=== PATIENT | female | born 1970 | race Caucasian/White ===

== ENCOUNTER 2017-09-15 08:09 | Day surgery (SDC) | payer OTHER ==
[~2017-09-15 08:09] MED LIST: Lactated Ringers 1,000 ML IV SCH; Lidocaine 2% 5 ML SDV ONE; Propofol 200 MG/20 ML SDV ONE; fentaNYL 100 MCG/2 ML SDV ONE
--- NOTE | 2017-09-15 09:19 | PCM.PREANE ---
Preanesthetic Assessment - Anesthesia/Transfusion/Family Hx Anesthesia History: Prior Anesthesia Reaction Type of Anesthesia Reaction: Excessive Nausea/Vomiting Family History of Anesthesia Reaction: No Transfusion History: No Prior Transfusion(s) Intubation History: Unknown - Review of Systems General: No Symptoms Pulmonary: No Symptoms Cardiovascular: No Symptoms Gastrointestinal: No Symptoms Neurological: No Symptoms Other: Reports: None - Physical Assessment NPO Status Date: 09/14/17 O2 Sat by Pulse Oximetry: 97 Respiratory Rate: 16 Vital Signs: Last Vital Signs Temp 36.0 C 09/15/17 08:39 Pulse 89 09/15/17 08:39 Resp 16 09/15/17 08:39 BP 107/82 09/15/17 08:39 Pulse Ox 97 09/15/17 08:39 Weight: 76.204 kg ASA Class: 2 Mental Status: Alert & Oriented x3 Airway Class: Mallampati = 2 Dentition: Reports: Normal Dentition ROM/Head Extension: Full Lungs: Clear to Auscultation, Normal Respiratory Effort Cardiovascular: Regular Rate, Regular Rhythm - Allergies Allergies/Adverse Reactions: Allergies Allergy/AdvReac Type Severity Reaction Status Date / Time Penicillins Allergy Mild Rash Verified 09/15/17 08:24 tramadol Allergy Cannot Verified 09/15/17 08:24 Remember - Anesthesia Plan Pre-Op Medication Ordered: None - Acknowledgements Anesthesia Type Planned: MAC Pt an Appropriate Candidate for the Planned Anesthesia: Yes Alternatives and Risks of Anesthesia Discussed w Pt/Guardian: Yes Pt/Guardian Understands and Agrees with Anesthesia Plan: Yes PreAnesthesia Questionnaire HEENT History: Reports: Allergic Rhinitis, Impaired Vision, Other (See Below) Other HEENT History: wears glasses Cardiovascular History: Reports: High Cholesterol, Hypertension Respiratory History: Reports: COPD Gastrointestinal History: Reports: GERD Genitourinary History: Reports: None 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: Musculoskeletal History: Reports: Fracture, Osteoporosis Other Musculoskeletal History: fx foot, ribs, Neurological History: Reports: Other (See Below) Other Neuro History: "memory issues" Psychiatric History: Reports: Anxiety, Depression, Other (See Below) Other Psychiatric History: insomnia Endocrine/Metabolic History: Reports: Hypothyroidism Hematologic History: Reports: None Immunologic History: Reports: None Oncologic (Cancer) History: Reports: None Dermatologic History: Reports: None - Past Surgical History Head Surgeries/Procedures: Reports: None GI Surgical History: Reports: EGD Female Surgical History: Reports: Other (See Below) Other Female Surgeries/Procedures: Right breast ductectomy Endocrine Surgical History: Reports: Thyroidectomy, Other (See Below) Other Endocrine Surgeries/Procedures: L thyroid lobectomy Neurological Surgical History: Reports: Lumbar Spine Other Neurological Surgeries/Procedures: lower back surgery Other Musculoskeletal Surgeries/Procedures:: L4-l5 discectomy, laminectomy Oncologic Surgical History: Reports: Biopsy of Breast - SUBSTANCE USE Smoking Status *Q: Current Every Day Smoker Tobacco Use Within Last Twelve Months: Cigarettes Second Hand Smoke Exposure: Yes Days Per Week of Alcohol Use: 1 Number of Drinks Per Day: 0 Total Drinks Per Week: 0 Recreational Drug Use History: No - HOME MEDS Home Medications: Home Meds Atenolol [Tenormin] 50 mg PO DAILY 01/07/14 [History] Hydrochlorothiazide 25 mg PO DAILY 01/07/14 [History] Levothyroxine Sodium [Levothyroxine Sodium] 1 tab PO ASDIRECTED 05/15/15 [ History] Lisinopril [Lisinopril] 60 mg PO DAILY 05/15/15 [History] Aspirin [[place] Aspirin] 81 mg PO DAILY 11/27/16 [History] Cyanocobalamin (Vitamin B-12) [Vitamin B-12] 1,000 mcg PO DAILY 11/27/16 [ History] Denosumab [Prolia] 1 dose SQ ASDIRECTED 11/27/16 [History] Multivitamin [Multivitamins] 1 tab PO DAILY 11/27/16 [History] amLODIPine Besylate [Amlodipine Besylate] 5 mg PO DAILY 11/27/16 [History] atorvaSTATin Calcium [Atorvastatin Calcium] 10 mg PO DAILY 11/27/16 [History] Albuterol [IJD: Albuterol HFA] 2 puff INH ASDIRECTED PRN 09/10/17 [History] Ca Carb/D3/Mag Ox/Still Cleaner/Roberth/Zn [Caltrate+D3 Plus Mineral Minis] 1 tab PO DAILY [History] Cholecalciferol (Vitamin D3) [Vitamin D3] 1 tab PO ASDIRECTED 09/10/17 [History] DULoxetine HCl [Cymbalta] 30 mg PO DAILY 09/10/17 [History] Omeprazole 20 mg PO ASDIRECTED PRN 09/10/17 [History] - CURRENT (IN HOUSE) MEDS Current Meds: Current Medications Lactated Ringer's (Ringers, Lactated) 1,000 mls @ 125 mls/hr IV ASDIRECTED LASHAWN Last Admin: 09/15/17 08:35 Dose: 125 mls/hr Discontinued Medications Fentanyl (Sublimaze) Confirm Administered Dose 100 mcg .ROUTE .STK-MED ONE Stop: 09/15/17 07:13 Lidocaine (Xylocaine-Mpf 2%) Confirm Administered Dose 5 ml .ROUTE .STK-MED ONE Stop: 09/15/17 07:13 Propofol (Diprivan 20 Ml) Confirm Administered Dose 400 mg .ROUTE .STK-MED ONE Stop: 09/15/17 07:13
[2017-09-15] MEDS ORDERED: Propofol 200 MG/20 ML SDV ONE (09:58)
[2017-09-15] MEDS ORDERED: Ondansetron 4 MG Tab.DIS PO PRN (10:17)
--- NOTE | 2017-09-15 10:20 | PCM.OPNOTE ---
- General Post-Op/Procedure Note Date of Surgery/Procedure: 09/15/17 Operative Procedure(s): Colonoscopy Pre Op Diagnosis: Change in bowel habits Post-Op Diagnosis: Pancolonic diverticulosis Anesthesia Technique: MAC (ASA III) Primary Surgeon: Jeramy Dunlap Roof Cement And Paint Maker Helper: Ramon Youssef Condition: Good Free Text/Narrative:: DICTATION [id number] CPT CODE [id number]
[2017-09-15] MEDS ORDERED: Lactated Ringers 1,000 ML IV SCH (10:30)
--- NOTE | 2017-09-15 10:42 | PCM.POSTAN ---
POST ANESTHESIA ASSESSMENT - MENTAL STATUS Mental Status: Alert, Oriented - RESPIRATORY Respiratory Status: Respiratory Rate WNL, Airway Patent, O2 Saturation Stable - CARDIOVASCULAR CV Status: Pulse Rate WNL, Blood Pressure Stable - GASTROINTESTINAL GI Status: No Symptoms - POST OP HYDRATION Hydration Status: Adequate & Stable
--- NOTE | 2017-09-15 10:43 | PCM48HPAN ---
Post Anesthesia Note - EVALUATION WITHIN 48HRS OF ANESTHETIC Vital Signs in Normal Range: Yes Patient Participated in Evaluation: Yes Respiratory Function Stable: Yes Airway Patent: Yes Cardiovascular Function Stable: Yes Hydration Status Stable: Yes Pain Control Satisfactory: Yes Nausea and Vomiting Control Satisfactory: Yes Mental Status Recovered: Yes Resp Rate: 16
--- NOTE | 2017-09-15 11:36 | OR ---
SURGEON: Jeramy Dunlap M.D. DATE OF PROCEDURE: 09/15/2017 OPEARTION PERFORMED: Colonoscopy. ASTROPHYSICS TEACHER: Dr. Youssef, PGY3. ANESTHESIA: MAC. [employer] [place] CLASSIFICATION: III. PREOPERATIVE DIAGNOSIS: Change in bowel habits. POSTOPERATIVE DIAGNOSIS: Pancolonic diverticulosis. DESCRIPTION OF PROCEDURE: The patient was taken to the endoscopy room, positioned on the endoscopy table in the left lateral decubitus position. Time-out was called for appropriate identification of the patient and procedure. Monitored anesthesia care was provided. The colonoscope was inserted into the rectum and advanced with moderate difficulty to the cecum where the colonoscope was retroflexed to visualize the ascending colon from below. The colonoscope was then straightened and slowly withdrawn. The cecum, ascending colon, hepatic flexure, transverse colon, splenic flexure, descending colon, sigmoid colon, and rectum were very well visualized. No tumors or polyps were identified. The patient does have diverticular changes scattered throughout the entire length of the colon. The area of most significant involvement is in the sigmoid colon. No stricture, spasm, or bleeding was noted. Once the colonoscope was withdrawn to the rectum, it was retroflexed to visualize the anal orifice from above. No tumors or polyps were seen and there were no acute hemorrhoidal changes. The colonoscope was then straightened, the rectum aspirated, and the colonoscope removed. The patient tolerated the procedure well and was taken to recovery room in satisfactory condition. WANDER PEÑA /[id number]
[2017-09-15 12:24] VITALS: BP 122/76
== END 2017-09-15 10:40 | disposition home or self-care (01) ==
LOC: MW.SDS 08:09
PROVIDERS: ATTEND Surgery
DX: K57.30 Diverticulosis of large intestine without perforation or abscess without bleeding (principal); K21.9 Gastro-esophageal reflux disease without esophagitis; J30.9 Allergic rhinitis, unspecified; F41.9 Anxiety disorder, unspecified; G56.03 Carpal tunnel syndrome, bilateral upper limbs; F40.240 Claustrophobia; J44.9 Chronic obstructive pulmonary disease, unspecified; I10 Essential (primary) hypertension; E78.00 Pure hypercholesterolemia, unspecified; G47.00 Insomnia, unspecified; F33.0 Major depressive disorder, recurrent, mild; E78.2 Mixed hyperlipidemia; M81.0 Age-related osteoporosis without current pathological fracture; G56.22 Lesion of ulnar nerve, left upper limb; G56.21 Lesion of ulnar nerve, right upper limb; K42.9 Umbilical hernia without obstruction or gangrene; F17.210 Nicotine dependence, cigarettes, uncomplicated; E89.0 Postprocedural hypothyroidism; Z88.0 Allergy status to penicillin; Z88.8 Allergy status to other drugs, medicaments and biological substances; Z79.899 Other long term (current) drug therapy; Z79.82 Long term (current) use of aspirin
CPT/HCPCS: 45378; J3010; J7120; 00811; J2704

== ENCOUNTER 2017-09-20 08:14 | Day surgery (SDC) | payer OTHER ==
[~2017-09-20 08:14] MED LIST changes: +Bupivacaine 0.5% 30 ML SDV ONE; -Lidocaine 2% 5 ML SDV ONE; -Propofol 200 MG/20 ML SDV ONE; +ceFAZolin 1 GM Vial ONE; +ceFAZolin 2 GM in Premix Bag 1 BAG IV SCH; -fentaNYL 100 MCG/2 ML SDV ONE
--- NOTE | 2017-09-20 08:42 | PCM.PREANE ---
Preanesthetic Assessment - Anesthesia/Transfusion/Family Hx Anesthesia History: Prior Anesthesia Reaction Type of Anesthesia Reaction: Excessive Nausea/Vomiting Transfusion History: No Prior Transfusion(s) Intubation History: Unknown - Review of Systems General: No Symptoms Pulmonary: No Symptoms Cardiovascular: No Symptoms Gastrointestinal: No Symptoms Neurological: No Symptoms Other: Reports: None - Physical Assessment NPO Status Date: 09/19/17 Height: 1.6 m Weight: 76.204 kg ASA Class: 2 Mental Status: Alert & Oriented x3 Airway Class: Mallampati = 2 Dentition: Reports: Normal Dentition ROM/Head Extension: Full Lungs: Clear to Auscultation, Normal Respiratory Effort Cardiovascular: Regular Rate, Regular Rhythm - Allergies Allergies/Adverse Reactions: Allergies Allergy/AdvReac Type Severity Reaction Status Date / Time Penicillins Allergy Mild Rash Verified 09/15/17 08:24 tramadol Allergy Cannot Verified 09/15/17 08:24 Remember - Anesthesia Plan Pre-Op Medication Ordered: Other (scop) - Acknowledgements Anesthesia Type Planned: General Anesthesia Pt an Appropriate Candidate for the Planned Anesthesia: Yes Alternatives and Risks of Anesthesia Discussed w Pt/Guardian: Yes Pt/Guardian Understands and Agrees with Anesthesia Plan: Yes PreAnesthesia Questionnaire HEENT History: Reports: Allergic Rhinitis, Impaired Vision, Other (See Below) Other HEENT History: wears glasses Cardiovascular History: Reports: High Cholesterol, Hypertension Respiratory History: Reports: COPD Gastrointestinal History: Reports: GERD Genitourinary History: Reports: 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: Musculoskeletal History: Reports: Fracture, Osteoporosis Other Musculoskeletal History: fx foot, ribs, Neurological History: Reports: Other (See Below) Other Neuro History: "memory issues" Psychiatric History: Reports: Anxiety, Depression, Other (See Below) Other Psychiatric History: insomnia Endocrine/Metabolic History: Reports: Hypothyroidism Hematologic History: Reports: None Immunologic History: Reports: None Oncologic (Cancer) History: Reports: None Dermatologic History: Reports: None - Past Surgical History Head Surgeries/Procedures: Reports: None Other HEENT Surgeries/Procedures: partial thyroidectomy GI Surgical History: Reports: EGD Female Surgical History: Reports: Other (See Below) Other Female Surgeries/Procedures: Right breast ductectomy Endocrine Surgical History: Reports: Thyroidectomy, Other (See Below) Other Endocrine Surgeries/Procedures: L thyroid lobectomy Neurological Surgical History: Reports: Lumbar Spine Other Neurological Surgeries/Procedures: lower back surgery Other Musculoskeletal Surgeries/Procedures:: L4-l5 discectomy, laminectomy Oncologic Surgical History: Reports: Biopsy of Breast - SUBSTANCE USE Smoking Status *Q: Current Every Day Smoker Tobacco Use Within Last Twelve Months: Cigarettes Second Hand Smoke Exposure: Yes Days Per Week of Alcohol Use: 1 Number of Drinks Per Day: 0 Total Drinks Per Week: 0 Recreational Drug Use History: No - HOME MEDS Home Medications: Home Meds Atenolol [Tenormin] 50 mg PO DAILY 01/07/14 [History] Hydrochlorothiazide 25 mg PO DAILY 01/07/14 [History] Levothyroxine Sodium 1 tab PO ASDIRECTED 05/15/15 [History] Lisinopril 60 mg PO DAILY 05/15/15 [History] Aspirin [[place] Aspirin] 81 mg PO DAILY 11/27/16 [History] Cyanocobalamin (Vitamin B-12) [Vitamin B-12] 1,000 mcg PO DAILY 11/27/16 [ History] Denosumab [Prolia] 1 dose SQ ASDIRECTED 11/27/16 [History] Multivitamin [Multivitamins] 1 tab PO DAILY 11/27/16 [History] amLODIPine Besylate [Amlodipine Besylate] 5 mg PO DAILY 11/27/16 [History] atorvaSTATin Calcium [Atorvastatin Calcium] 10 mg PO DAILY 11/27/16 [History] Albuterol [IJD: Albuterol HFA] 2 puff INH ASDIRECTED PRN 09/10/17 [History] Ca Carb/D3/Mag Ox/Senior Ios Software Engineer/Roberth/Zn [Caltrate+D3 Plus Mineral Minis] 1 tab PO DAILY [History] Cholecalciferol (Vitamin D3) [Vitamin D3] 1 tab PO ASDIRECTED 09/10/17 [History] DULoxetine HCl [Cymbalta] 30 mg PO DAILY 09/10/17 [History] Omeprazole 20 mg PO ASDIRECTED PRN 09/10/17 [History] - CURRENT (IN HOUSE) MEDS Current Meds: Current Medications Cefazolin Sodium/Dextrose 2 gm (/ Premix) 50 mls @ 100 mls/hr IV ONETIME LASHAWN Lactated Ringer's (Ringers, Lactated) 1,000 mls @ 125 mls/hr IV ASDIRECTED LASHAWN Discontinued Medications Bupivacaine HCl (Marcaine 0.5%) Confirm Administered Dose 30 ml .ROUTE .STK-MED ONE Stop: 09/20/17 07:27 Cefazolin Sodium (Ancef) Confirm Administered Dose 1 gm .ROUTE .[facility]-MED ONE Stop: 09/20/17 07:27
[2017-09-20] MEDS ORDERED: Propofol 200 MG/20 ML SDV ONE (09:00)
[2017-09-20] MEDS ORDERED: Lidocaine 2% 5 ML SDV ONE (09:00)
[2017-09-20] MEDS ORDERED: Midazolam 1 MG/ML 2 ML SDV ONE (09:01)
[2017-09-20] MEDS ORDERED: fentaNYL 100 MCG/2 ML SDV ONE ×2 (09:01→11:35)
[2017-09-20] MEDS ORDERED: ceFAZolin/Dextrose,Iso-Osmotic 2 GM/50 ML Duplex Bag IV ONE (09:11)
[2017-09-20] MEDS ORDERED: ePHEDrine 50 MG/ML SDV ONE (11:08)
[2017-09-20] MEDS ORDERED: Ondansetron 4 MG Tab.DIS PO PRN (11:25)
[2017-09-20] MEDS ORDERED: Morphine 10 MG/ML Syringe IVPUSH PRN (11:26)
[2017-09-20] MEDS ORDERED: Acetaminophen/HYDROcodone 325-5 MG Tab PO PRN (11:26)
[2017-09-20] MEDS ORDERED: Ondansetron 4 MG/2 ML SDV IVPUSH PRN (11:26)
[2017-09-20] MEDS ORDERED: Acetaminophen/oxyCODONE 325-5 MG Tab PO PRN (11:26)
[2017-09-20] MEDS ORDERED: Lactated Ringers 1,000 ML IV SCH (11:30)
--- NOTE | 2017-09-20 11:32 | PCM.OPNOTE ---
- General Post-Op/Procedure Note Date of Surgery/Procedure: 09/20/17 Operative Procedure(s): Repair incarcerated umbilical hernia Pre Op Diagnosis: Incarcerated umbilical hernia Post-Op Diagnosis: Same Anesthesia Technique: General ET Tube (ASA II) Primary Surgeon: Jeramy Dunlap Beading Installer: Ramon Youssef Fluid Replacement, Intraop: 1,000 EBL in mLs: 5 Condition: Good Free Text/Narrative:: Dictation [id number] CPT CODE [id number]
[2017-09-20] MEDS: fentaNYL 100 MCG/2 ML SDV IVPUSH PRN ×4 (11:36→11:58)
--- NOTE | 2017-09-20 12:11 | OR ---
SURGEON: Jeramy Dunlap M.D. DATE OF PROCEDURE: 09/20/2017 OPERATION PERFORMED: Repair incarcerated umbilical hernia. FORMING PROCESS WORKER: Dr. Youssef PGY3. ANESTHESIA: General endotracheal. [place] [employer] CLASSIFICATION: II. PREOPERATIVE DIAGNOSIS: Incarcerated umbilical hernia. POSTOPERATIVE DIAGNOSIS: Incarcerated umbilical hernia. ESTIMATED BLOOD LOSS: 5 mL. INTRAOPERATIVE FLUID REPLACEMENT: 1000 mL of crystalloid. DESCRIPTION OF PROCEDURE: The patient was taken to the operating room and placed on the operating table in the supine position. Time-out was called for appropriate identification of the patient and procedure. Thigh-high TEDs and sequential compression boots were placed. Following satisfactory attainment of general endotracheal anesthesia, the abdomen was prepped with DuraPrep solution and sterile drapes were applied. The skin just below the umbilicus was infiltrated with 0.5% Marcaine solution. The skin incision was made and deepened through the subcutaneous tissue obtaining hemostasis with the use of electrocautery. The fascial defect was identified and the contents were reduced. The hernia was then repaired with multiple interrupted 0 Ethibond sutures. All sutures were placed under direct vision and held with hemostats until the final suture had been placed. Once all sutures were tied down, the patient was given a Valsalva maneuver to 52 cm of water. The repair was solid. The wound was inspected for hemostasis, no bleeding was noted. The skin was then reapproximated with subcuticular 4-0 Monocryl reinforced with Steri-Strips. Sterile Tegaderm pad was placed as a dressing. Sponge, needle, and instrument counts were all correct. Following emergence from anesthesia and extubation, the patient was taken to recovery room in stable condition. WANDER / MARIANA /[id number]
--- NOTE | 2017-09-20 12:36 | PCM48HPAN ---
Post Anesthesia Note - EVALUATION WITHIN 48HRS OF ANESTHETIC Vital Signs in Normal Range: Yes Patient Participated in Evaluation: Yes Respiratory Function Stable: Yes Airway Patent: Yes Cardiovascular Function Stable: Yes Hydration Status Stable: Yes Pain Control Satisfactory: Yes Nausea and Vomiting Control Satisfactory: Yes Mental Status Recovered: Yes Resp Rate: 14
[2017-09-20 13:07] VITALS: BP 124/70
== END 2017-09-20 13:18 | disposition home or self-care (01) ==
LOC: MW.SDS 08:14
PROVIDERS: ATTEND Surgery
DX: K42.0 Umbilical hernia with obstruction, without gangrene (principal); K21.9 Gastro-esophageal reflux disease without esophagitis; F41.9 Anxiety disorder, unspecified; F32.9 Major depressive disorder, single episode, unspecified; J44.9 Chronic obstructive pulmonary disease, unspecified; I10 Essential (primary) hypertension; E03.9 Hypothyroidism, unspecified; E78.2 Mixed hyperlipidemia; Z88.0 Allergy status to penicillin; Z88.8 Allergy status to other drugs, medicaments and biological substances; Z79.82 Long term (current) use of aspirin; Z79.899 Other long term (current) drug therapy; F17.210 Nicotine dependence, cigarettes, uncomplicated
CPT/HCPCS: 49587; 81025; A9270; J0690; J2250; J3010; J7120; 00830; J2704

== ENCOUNTER 2018-01-06 13:12 | Emergency (ER) | payer OTHER ==
[2018-01-06] MEDS ORDERED: Aspirin 81 MG Tab.Chew PO ONE (13:18)
[2018-01-06] MEDS ORDERED: Sodium Chloride 0.9% 2.5 ML Syringe FLUSH PRN (13:18)
[2018-01-06] MEDS ORDERED: Sodium Chloride 0.9% 10 ML Syringe FLUSH PRN (13:18)
--- NOTE | 2018-01-06 13:19 | EDM.PDOC ---
ED HPI GENERAL MEDICAL PROBLEM - General Chief Complaint: Chest Pain Stated Complaint: CHEST PAIN Time Seen by Provider: 01/06/18 15:43 Source of Information: Reports: Patient History Limitations: Reports: No Limitations - History of Present Illness INITIAL COMMENTS - FREE TEXT/NARRATIVE: HISTORY AND PHYSICAL: History of present illness: [Serenity is a 47-year-old female here with complaint of left sided chest pain. Patient points to left lateral lower chest over ribs 10-12. Patient states that she has had this pain x 2 weeks. Had a chest x-ray done 2 days ago at [facility] in [place] which was reportedly unremarkable. Pain with deep breaths. No radiation of pain to arm or jaw. Her doctor called her this week with concern of PE based on her symptoms. She denies any fevers, chills, nausea, vomiting, diarrhea, abdominal pain, diaphoresis. Past medical history of hypertension, hypothyroidism, osteoporosis, COPD. ] Review of systems: As per history of present illness and below otherwise all systems reviewed and negative. Past medical history: As per history of present illness and as reviewed below otherwise noncontributory. Surgical history: Smoker 1 ppd x 30+ years Social history: Smoker No reported history of drug or alcohol abuse. Family history: As per history of present illness and as reviewed below otherwise noncontributory. Physical exam: HEENT: Atraumatic, normocephalic, pupils reactive, negative for conjunctival pallor or scleral icterus, mucous membranes moist, throat clear, neck supple, nontender, trachea midline. Lungs: Breath sounds diminished throughout all lung anderson, chest nontender. Heart: S1S2, regular, negative for clicks, rubs, or JVD. Abdomen: Soft, nondistended, nontender. Negative for masses or hepatosplenomegaly. Negative for costovertebral tenderness. Pelvis: Stable nontender. Genitourinary: Deferred. Rectal: Deferred. Extremities: Atraumatic, negative for cords or calf pain. Neurovascular unremarkable. Neuro: Awake, alert, oriented. Cranial nerves II through XII unremarkable. Cerebellum unremarkable. Motor and sensory unremarkable throughout. Exam nonfocal. Notes: Diagnostics: [CXR - left lower lobe infiltrate EKG - No ST-T wave changes CBC, CMP, PT/INR, D-dimer (0.38), Troponin, amylase, lipase ] Therapeutics: [Aspirin 324mg DuoNeb] Azithromycin Medrol dosepak Impression: [COPD exacerbation Pneumonia] Plan: [#1 Take antibiotic and medrol dosepak as instructed #2 Use rescue inhaler every 4-6 hours as needed #3 Follow up with PCP #4 Return to ED as needed as discussed ] Definitive disposition and diagnosis as appropriate pending reevaluation and review of above. Left Chest Pain Score (Numeric/FACES): 6 - Related Data Allergies Allergy/AdvReac Type Severity Reaction Status Date / Time Penicillins Allergy Mild Rash Verified 01/06/18 14:00 Home Meds: Home Meds Hydrochlorothiazide 25 mg PO DAILY 01/07/14 [History] Lisinopril 60 mg PO DAILY 05/15/15 [History] Aspirin [[place] Aspirin] 81 mg PO DAILY 11/27/16 [History] Denosumab [Prolia] 1 dose SQ ASDIRECTED 11/27/16 [History] Multivitamin [Multivitamins] 1 tab PO DAILY 11/27/16 [History] amLODIPine Besylate [Amlodipine Besylate] 10 mg PO DAILY 11/27/16 [History] atorvaSTATin Calcium [Atorvastatin Calcium] 10 mg PO DAILY 11/27/16 [History] Albuterol [IJD: Albuterol HFA] 2 puff INH ASDIRECTED PRN 09/10/17 [History] Ca Carb/D3/Mag Ox/Medical Surgery Nurse/Roberth/Zn [Caltrate+D3 Plus Mineral Minis] 1 tab PO DAILY [History] Cholecalciferol (Vitamin D3) [Vitamin D3] 1 tab PO ASDIRECTED 09/10/17 [History] DULoxetine HCl [Cymbalta] 30 mg PO DAILY 09/10/17 [History] Omeprazole 20 mg PO ASDIRECTED PRN 09/10/17 [History] Azithromycin [Zithromax] 250 mg PO DAILY #6 tab 01/06/18 [Rx] Levothyroxine 175 mcg PO ACBRK 01/06/18 [History] methylPREDNISolone [Medrol] 4 mg PO ASDIRECTED #1 dospk 01/06/18 [Rx] Past Medical History HEENT History: Reports: Allergic Rhinitis, Impaired Vision, Other (See Below) Other HEENT History: wears glasses Cardiovascular History: Reports: High Cholesterol, Hypertension Respiratory History: Reports: COPD Gastrointestinal History: Reports: GERD Genitourinary History: Reports: None 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: Musculoskeletal History: Reports: Fracture, Osteoporosis Other Musculoskeletal History: fx foot, ribs, Neurological History: Reports: Other (See Below) Other Neuro History: "memory issues" Psychiatric History: Reports: Anxiety, Depression, Other (See Below) Other Psychiatric History: insomnia Endocrine/Metabolic History: Reports: Hypothyroidism Hematologic History: Reports: None Immunologic History: Reports: None Oncologic (Cancer) History: Reports: None Dermatologic History: Reports: None - Past Surgical History GI Surgical History: Reports: Colonoscopy, EGD ED ROS GENERAL - Review of Systems Review Of Systems: ROS reveals no pertinent complaints other than HPI. ED EXAM, GENERAL - Physical Exam Exam: See Below (see dictation) Course - Vital Signs Last Recorded V/S: Last Vital Signs Temp 36.4 C 01/06/18 14:05 Pulse 100 01/06/18 14:05 Resp 16 01/06/18 14:05 BP 144/97 H 01/06/18 14:05 Pulse Ox 98 01/06/18 14:05 - Orders/Labs/Meds Orders: Active Orders 24 hr Category Date Time Status Cardiac Monitoring [RC] . DIRECTED Care 01/06/18 13:18 Active EKG Documentation Completion [RC] STAT Care 01/06/18 13:18 Active Oxygen Therapy [RC] ASDIRECTED Care 01/06/18 13:18 Active Pulse Oximetry [RC] ASDIRECTED Care 01/06/18 13:18 Active RT Aerosol Therapy [RC] ASDIRECTED Care 01/06/18 14:40 Active HCG QUALITATIVE,URINE [URCHEM] Stat Lab 01/06/18 14:26 Ordered UA W/MICROSCOPIC [URIN] Stat Lab 01/06/18 14:26 Ordered Sodium Chloride 0.9% [Saline Flush] Med 01/06/18 13:18 Active 10 ml FLUSH ASDIRECTED PRN Sodium Chloride 0.9% [Saline Flush] Med 01/06/18 13:18 Active 2.5 ml FLUSH ASDIRECTED PRN Saline Lock Insert [OM.PC] Stat Oth 01/06/18 13:18 Ordered Medication Orders Sodium Chloride (Saline Flush) 10 ml FLUSH ASDIRECTED PRN PRN Reason: Keep Vein Open Sodium Chloride (Saline Flush) 2.5 ml FLUSH ASDIRECTED PRN PRN Reason: Keep Vein Open Labs: Laboratory Tests 01/06/18 01/06/18 01/06/18 Range/Units 13:35 13:35 13:35 WBC 6.32 (4.0-11.0) K/uL RBC 4.66 (4.30-5.90) M/uL Hgb 15.9 (12.0-16.0) g/dL Hct 43.3 (36.0-46.0) % MCV 92.9 (80.0-98.0) fL MCH 34.1 H (27.0-32.0) pg MCHC 36.7 (31.0-37.0) g/dL RDW Std Deviation 44.7 (28.0-62.0) fl RDW Coeff of Susan 13 (11.0-15.0) % Plt Count 139 L (150-400) K/uL MPV 12.70 H (7.40-12.00) fL Neut % (Auto) 56.7 (48.0-80.0) % Lymph % (Auto) 31.8 (16.0-40.0) % Pickens % (Auto) 8.5 (0.0-15.0) % Eos % (Auto) 2.1 (0.0-7.0) % Baso % (Auto) 0.9 (0.0-1.5) % Neut # (Auto) 3.6 (1.4-5.7) K/uL Lymph # (Auto) 2.0 (0.6-2.4) K/uL Pickens # (Auto) 0.5 (0.0-0.8) K/uL Eos # (Auto) 0.1 (0.0-0.7) K/uL Baso # (Auto) 0.1 (0.0-0.1) K/uL Nucleated RBC % 0.0 /100WBC Nucleated RBCs # 0 K/uL INR 0.92 D-Dimer, Quantitative (0.0-0.52) mg/LFEU Sodium 131 L (136-145) mmol/L Potassium 3.8 (3.5-5.1) mmol/L Chloride 99 (98-107) mmol/L Carbon Dioxide 27.5 (21.0-32.0) mmol/L BUN 8 (7.0-18.0) mg/dL Creatinine 0.7 (0.6-1.0) mg/dL Est Cr Clr Drug Dosing 81.30 mL/min Estimated GFR (MDRD) > 60.0 ml/min Glucose 104 (74-106) mg/dL Calcium 9.2 (8.5-10.1) mg/dL Total Bilirubin 0.4 (0.2-1.0) mg/dL AST 29 (15-37) IU/L ALT 24 (14-63) IU/L Alkaline Phosphatase 76 (46-116) U/L Troponin I < 0.050 (0.000-0.056) ng/mL Total Protein 8.0 (6.4-8.2) g/dL Albumin 3.8 (3.4-5.0) g/dL Globulin 4.2 H (2.0-3.5) g/dL Albumin/Globulin Ratio 0.9 L (1.3-2.8) Amylase 46 (25-115) U/L Lipase 103 (73-393) U/L 01/06/18 Range/Units 13:35 WBC (4.0-11.0) K/uL RBC (4.30-5.90) M/uL Hgb (12.0-16.0) g/dL Hct (36.0-46.0) % MCV (80.0-98.0) fL MCH (27.0-32.0) pg MCHC (31.0-37.0) g/dL RDW Std Deviation (28.0-62.0) fl RDW Coeff of Susan (11.0-15.0) % Plt Count (150-400) K/uL MPV (7.40-12.00) fL Neut % (Auto) (48.0-80.0) % Lymph % (Auto) (16.0-40.0) % Pickens % (Auto) (0.0-15.0) % Eos % (Auto) (0.0-7.0) % Baso % (Auto) (0.0-1.5) % Neut # (Auto) (1.4-5.7) K/uL Lymph # (Auto) (0.6-2.4) K/uL Pickens # (Auto) (0.0-0.8) K/uL Eos # (Auto) (0.0-0.7) K/uL Baso # (Auto) (0.0-0.1) K/uL Nucleated RBC % /100WBC Nucleated RBCs # K/uL INR D-Dimer, Quantitative 0.38 (0.0-0.52) mg/LFEU Sodium (136-145) mmol/L Potassium (3.5-5.1) mmol/L Chloride (98-107) mmol/L Carbon Dioxide (21.0-32.0) mmol/L BUN (7.0-18.0) mg/dL Creatinine (0.6-1.0) mg/dL Est Cr Clr Drug Dosing mL/min Estimated GFR (MDRD) ml/min Glucose (74-106) mg/dL Calcium (8.5-10.1) mg/dL Total Bilirubin (0.2-1.0) mg/dL AST (15-37) IU/L ALT (14-63) IU/L Alkaline Phosphatase (46-116) U/L Troponin I (0.000-0.056) ng/mL Total Protein (6.4-8.2) g/dL Albumin (3.4-5.0) g/dL Globulin (2.0-3.5) g/dL Albumin/Globulin Ratio (1.3-2.8) Amylase (25-115) U/L Lipase (73-393) U/L Meds: Medications Generic Name Dose Route Start Last Admin Trade Name Freq PRN Reason Stop Dose Admin Sodium Chloride 10 ml 01/06/18 13:18 Saline Flush FLUSH ASDIRECTED PRN Keep Vein Open Sodium Chloride 2.5 ml 01/06/18 13:18 Saline Flush FLUSH ASDIRECTED PRN Keep Vein Open Discontinued Medications Generic Name Dose Route Start Last Admin Trade Name Freq PRN Reason Stop Dose Admin Albuterol/Ipratropium 3 ml 01/06/18 14:40 01/06/18 15:06 Duoneb 3.0-0.5 Mg/3 Ml NEB 01/06/18 14:41 3 ml ONETIME ONE Administration Aspirin 324 mg 01/06/18 13:18 01/06/18 14:24 Aspirin PO 01/06/18 13:19 324 mg ONETIME ONE Administration Departure - Departure Time of Disposition: 15:42 Disposition: Home, Self-Care 01 Condition: Good Clinical Impression: Pneumonia, COPD (chronic obstructive pulmonary disease) Prescriptions: Azithromycin [Zithromax] 250 mg PO DAILY #6 tab methylPREDNISolone [Medrol] 4 mg PO ASDIRECTED #1 dospk Referrals: PCP,Unknown [Primary Care Provider] - Forms: ED Department Discharge Additional Instructions: The following information is given to patients seen in the emergency department who are being discharged to home. This information is to outline your options for follow-up care. We provide all patients seen in our emergency department with a follow-up referral. The need for follow-up, as well as the timing and circumstances, are variable depending upon the specifics of your emergency department visit. If you don't have a primary care physician on staff, we will provide you with a referral. We always advise you to contact your personal physician following an emergency department visit to inform them of the circumstance of the visit and for follow-up with them and/or the need for any referrals to a consulting specialist. The emergency department will also refer you to a specialist when appropriate. This referral assures that you have the opportunity for follow-up care with a specialist. All of these measure are taken in an effort to provide you with optimal care, which includes your follow-up. Under all circumstances we always encourage you to contact your private physician who remains a resource for coordinating your care. When calling for follow-up care, please make the office aware that this follow-up is from your recent emergency room visit. If for any reason you are refused follow-up, please contact the [facility] Emergency Department at and asked to speak to the emergency department charge nurse. [facility] [address] [place] [id number] [id number] #1 Take antibiotic and medrol dosepak as instructed #2 Use rescue inhaler every 4-6 hours as needed #3 Follow up with PCP #4 Return to ED as needed as discussed - My Orders Last 24 Hours: My Active Orders 01/06/18 13:18 Cardiac Monitoring [RC] . DIRECTED EKG Documentation Completion [RC] STAT Oxygen Therapy [RC] ASDIRECTED Pulse Oximetry [RC] ASDIRECTED Sodium Chloride 0.9% [Saline Flush] 10 ml FLUSH ASDIRECTED PRN Sodium Chloride 0.9% [Saline Flush] 2.5 ml FLUSH ASDIRECTED PRN Saline Lock Insert [OM.PC] Stat 01/06/18 14:26 HCG QUALITATIVE,URINE [URCHEM] Stat UA W/MICROSCOPIC [URIN] Stat 01/06/18 14:40 RT Aerosol Therapy [RC] ASDIRECTED - Assessment/Plan Last 24 Hours: My Active Orders 01/06/18 13:18 Cardiac Monitoring [RC] . DIRECTED EKG Documentation Completion [RC] STAT Oxygen Therapy [RC] ASDIRECTED Pulse Oximetry [RC] ASDIRECTED Sodium Chloride 0.9% [Saline Flush] 10 ml FLUSH ASDIRECTED PRN Sodium Chloride 0.9% [Saline Flush] 2.5 ml FLUSH ASDIRECTED PRN Saline Lock Insert [OM.PC] Stat 01/06/18 14:26 HCG QUALITATIVE,URINE [URCHEM] Stat UA W/MICROSCOPIC [URIN] Stat 01/06/18 14:40 RT Aerosol Therapy [RC] ASDIRECTED
[2018-01-06 14:08] VITALS: BP 144/97
[2018-01-06 14:21] LABS: CHLORIDE,CL 99 mmol/L (98-107); SODIUM,NA 131 mmol/L (136-145)
[2018-01-06] MEDS ORDERED: Albuterol/Ipratropium 3.0-0.5 MG/3 ML Neb Soln NEB ONE (14:40)
--- NOTE | 2018-01-06 15:18 | CR ---
EXAM DATE: 01/06/18 PATIENT'S AGE: 47 Patient: KARSON OROZCO Facility: [place], [place] Site . Site : 1970 Study: XRay Chest [id number]/[id number] 2:05:58 PM Ordering Physician: Doctor Guzman Final Report: HISTORY: Chest pain. FINDINGS: AP portable chest radiograph is compared with 28 December 2014. Cardiac silhouette is acceptable size. Pulmonary vasculature is free of cephalization. No lobar consolidation or pleural effusion is seen. No displaced rib fracture is identified. IMPRESSION: No acute cardiopulmonary disease. Dictated by Nidia Johnson MD @ 01/06/2018 2:11:41 PM Dictated by: Nidia Johnson MD @ 01/06/2018 14:11:48 (Electronic Signature) Report Signed by Proxy. [facility]
== END 2018-01-06 15:50 | disposition home or self-care (01) ==
LOC: MW.ED 13:12
DX: J44.0 Chronic obstructive pulmonary disease with (acute) lower respiratory infection (principal); J18.9 Pneumonia, unspecified organism; J44.1 Chronic obstructive pulmonary disease with (acute) exacerbation; E78.00 Pure hypercholesterolemia, unspecified; I10 Essential (primary) hypertension; K21.9 Gastro-esophageal reflux disease without esophagitis; E03.9 Hypothyroidism, unspecified; Z88.0 Allergy status to penicillin; Z79.82 Long term (current) use of aspirin; Z79.899 Other long term (current) drug therapy
CPT/HCPCS: 36415; 71045; 80053; 82150; 83690; 84484; 85025; 85379; 85610; 93005; 94640; 99284; A9270

== ENCOUNTER 2020-06-12 10:52 | Emergency (ER) | payer OTHER ==
[2020-06-12] MEDS ORDERED: Sodium Chloride 0.9% 10 ML Syringe FLUSH PRN (10:57)
[2020-06-12] MEDS ORDERED: Lactated Ringers 1,000 ML IV ONE (10:57)
[2020-06-12] MEDS ORDERED: Sodium Chloride 0.9% 2.5 ML Syringe FLUSH PRN (10:57)
--- NOTE | 2020-06-12 11:09 | EDM.PDOC ---
ED HPI GENERAL MEDICAL PROBLEM - General Chief Complaint: Syncope Stated Complaint: SYNCOPY Time Seen by Provider: 06/12/20 10:56 Source of Information: Reports: Patient History Limitations: Reports: No Limitations - History of Present Illness INITIAL COMMENTS - FREE TEXT/NARRATIVE: 49-year-old female with history of cervical degenerative disc disease presents with syncopal episode while getting lidocaine trigger point injections in the cervical spine and right trapezius in the pain clinic just prior to arrival. DOMINIC PENA was called for seizure-like activity immediately after getting trigger point injections by Dr. Mcintyre. Dr. Mcintyre described that she was having seizure-like activity where she was shaking in her arms as she was late to the floor. She admits to a diffuse 6/10 headache that came on acutely after getting trigger point injections. Patient denies fever, chills, chest pain, shortness of breath, abdominal pain, new focal numbness or weakness. She has chronic right upper extremity numbness. Currently her headache is slightly improved. ROS: A 10-point review of systems, other than pertinent positives and negatives as stated per HPI, is otherwise negative Past medical history: No additional pertinent history Past Surgical history: No additional pertinent history Social history: No additional pertinent history Family history: No additional pertinent history PHYSICAL EXAM General: AOx4, GCS = 15, No distress HEENT: dry mucous membrane Neck: supple, no meningismus, no Kernig or Brudzinski Cardiac: S1S2 RRR Respiratory: CTAB, no crackles or rales, no wheezing Abdomen: Soft, nontender, no rebound or guarding, nondistended, no pulsatile mass. Back: nontender Musculoskeletal: NVI distally, no deformity Neuro: Hypoesthesia right upper extremity, unchanged from prior neck Pain Score (Numeric/FACES): 6 - Related Data Allergies Allergy/AdvReac Type Severity Reaction Status Date / Time Penicillins Allergy Mild Rash Verified 06/12/20 11:05 cashew nut Allergy Airway Verified 06/12/20 11:05 Tightness pistashios Allergy Airway Uncoded 06/12/20 11:05 Tightness Home Meds: Home Meds hydroCHLOROthiazide [Hydrochlorothiazide] 25 mg PO QAM 01/07/14 [History] Lisinopril 90 mg PO QAM 05/15/15 [History] Aspirin [[place] Aspirin] 81 mg PO DAILY 11/27/16 [History] amLODIPine Besylate [Amlodipine Besylate] 10 mg PO QAM 11/27/16 [History] Albuterol [IJD: Albuterol HFA] 2 puff INH ASDIRECTED PRN 09/10/17 [History] DULoxetine HCl [Cymbalta] 60 mg PO QAM 09/10/17 [History] Acetaminophen/oxyCODONE [Percocet 325-10 MG] 1 tab PO Q6H 04/07/19 [History] Denosumab [Prolia] 60 mg PO ASDIRECTED 04/07/19 [History] Famotidine [Pepcid] 20 mg PO ASDIRECTED PRN 04/07/19 [History] Gabapentin [Neurontin] 300 mg PO TID 04/07/19 [History] Levothyroxine Sodium [Synthroid] 0.5 tab PO ASDIRECTED 04/07/19 [History] Levothyroxine Sodium [Synthroid] 175 mg PO ASDIRECTED 04/07/19 [History] Past Medical History HEENT History: Reports: Other (See Below) Other HEENT History: wears glasses Cardiovascular History: Reports: Hypertension Respiratory History: Reports: COPD Other Respiratory History: smokes 1 PPD [id number] Gastrointestinal History: Reports: Diverticulosis, GERD Other Gastrointestinal History: takes OTC Pepsid prn Genitourinary History: Reports: 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: Musculoskeletal History: Reports: Back Pain, Chronic, Fracture, Osteoporosis, Other (See Below) Other Musculoskeletal History: currently has stress fx in her back Neurological History: Reports: Other (See Below) Other Neuro History: "memory issues" Psychiatric History: Reports: Anxiety, Depression Other Psychiatric History: insomnia Endocrine/Metabolic History: Reports: Hypothyroidism, Obesity/BMI 30+ Hematologic History: Reports: None Immunologic History: Reports: None Oncologic (Cancer) History: Reports: None Dermatologic History: Reports: Other (See Below) Other Dermatologic History: hx of hydranitis - Infectious Disease History Infectious Disease History: Reports: Chicken Pox - Past Surgical History Head Surgeries/Procedures: Reports: None GI Surgical History: Reports: Colonoscopy, Other (See Below) Other GI Surgeries/Procedures: hx of Umbilical Hernia repair Female Surgical History: Reports: Breast Biopsy Endocrine Surgical History: Reports: Thyroidectomy Neurological Surgical History: Reports: Discectomy, Lumbar Spine Other Neurological Surgeries/Procedures: hx of Microdiscectomy L4-L5 Musculoskeletal Surgical History: Reports: Other (See Below) Other Musculoskeletal Surgeries/Procedures:: excision of cyst removed from Left pinky finger Social & Family History - Family History Family Medical History: No Pertinent Family History - Caffeine Use Caffeine Use: Reports: Coffee ED ROS GENERAL - Review of Systems Review Of Systems: See Below (see dictation) ED EXAM, GENERAL - Physical Exam Exam: See Below (see dictation) #1 Interpretation EKG Interpretation Comments: Heart rate = 100 bpm, normal sinus rhythm, normal QRS interval, no STEMI. EKG and rhythm strip interpreted by me at 1100 Course - Vital Signs Last Recorded V/S: Last Vital Signs Temp 97.1 F 06/12/20 12:02 Pulse 99 06/12/20 12:02 Resp 18 06/12/20 12:02 BP 156/105 H 06/12/20 12:02 Pulse Ox 100 06/12/20 12:02 - Orders/Labs/Meds Orders: Active Orders 24 hr Category Date Time Status Saline Lock Insert [OM.PC] Stat Oth 06/12/20 10:57 Ordered Labs: Laboratory Tests 06/12/20 06/12/20 06/12/20 Range/Units 10:53 10:53 10:53 WBC 8.98 (4.0-11.0) K/uL RBC 4.74 (4.30-5.90) M/uL Hgb 15.8 (12.0-16.0) g/dL Hct 46.5 H (36.0-46.0) % MCV 98.1 H (80.0-98.0) fL MCH 33.3 H (27.0-32.0) pg MCHC 34.0 (31.0-37.0) g/dL RDW Std Deviation 47.9 (28.0-62.0) fl RDW Coeff of Susan 13 (11.0-15.0) % Plt Count 162 (150-400) K/uL MPV 12.70 H (7.40-12.00) fL Neut % (Auto) 62.7 (48.0-80.0) % Lymph % (Auto) 25.8 (16.0-40.0) % [place] % (Auto) 8.4 (0.0-15.0) % Eos % (Auto) 2.1 (0.0-7.0) % Baso % (Auto) 1.0 (0.0-1.5) % Neut # (Auto) 5.6 (1.4-5.7) K/uL Lymph # (Auto) 2.3 (0.6-2.4) K/uL [place] # (Auto) 0.8 (0.0-0.8) K/uL Eos # (Auto) 0.2 (0.0-0.7) K/uL Baso # (Auto) 0.1 (0.0-0.1) K/uL Nucleated RBC % 0.0 /100WBC Nucleated RBCs # 0 K/uL INR APTT (18.6-31.3) SEC Lactate (0.20-2.00) mmol/L Sodium 137 (136-145) mmol/L Potassium 3.4 L (3.5-5.1) mmol/L Chloride 100 (98-107) mmol/L Carbon Dioxide 23.7 (21.0-32.0) mmol/L BUN 9 (7.0-18.0) mg/dL Creatinine 0.6 (0.6-1.0) mg/dL Est Cr Clr Drug Dosing 96.86 mL/min Estimated GFR (MDRD) > 60.0 ml/min Glucose 96 (74-106) mg/dL Calcium 8.4 L (8.5-10.1) mg/dL Phosphorus 2.1 L (2.6-4.7) mg/dL Magnesium 2.1 (1.8-2.4) mg/dL Total Bilirubin 0.4 (0.2-1.0) mg/dL AST 30 (15-37) IU/L ALT 22 (14-63) IU/L Alkaline Phosphatase 75 (46-116) U/L Troponin I < 0.050 (0.000-0.056) ng/mL B-Natriuretic Peptide 12 (<100) PG/ML Total Protein 7.5 (6.4-8.2) g/dL Albumin 3.5 (3.4-5.0) g/dL Globulin 4.0 (2.6-4.0) g/dL Albumin/Globulin Ratio 0.9 (0.9-1.6) Urine Color Urine Appearance Urine pH (5.0-8.0) Ur Specific [place] (1.001-1.035) Urine Protein (NEGATIVE) mg/dL Urine Glucose (UA) (NEGATIVE) mg/dL Urine Ketones (NEGATIVE) mg/dL Urine Occult Blood (NEGATIVE) Urine Nitrite (NEGATIVE) Urine Bilirubin (NEGATIVE) Urine Urobilinogen (<2.0) EU/dL Ur Leukocyte Esterase (NEGATIVE) Urine HCG, Qual (NEGATIVE) SARS-CoV-2 RNA (LEANNA) (NEGATIVE) 06/12/20 06/12/20 06/12/20 Range/Units 10:53 10:53 12:00 WBC (4.0-11.0) K/uL RBC (4.30-5.90) M/uL Hgb (12.0-16.0) g/dL Hct (36.0-46.0) % MCV (80.0-98.0) fL MCH (27.0-32.0) pg MCHC (31.0-37.0) g/dL RDW Std Deviation (28.0-62.0) fl RDW Coeff of Susan (11.0-15.0) % Plt Count (150-400) K/uL MPV (7.40-12.00) fL Neut % (Auto) (48.0-80.0) % Lymph % (Auto) (16.0-40.0) % [place] % (Auto) (0.0-15.0) % Eos % (Auto) (0.0-7.0) % Baso % (Auto) (0.0-1.5) % Neut # (Auto) (1.4-5.7) K/uL Lymph # (Auto) (0.6-2.4) K/uL [place] # (Auto) (0.0-0.8) K/uL Eos # (Auto) (0.0-0.7) K/uL Baso # (Auto) (0.0-0.1) K/uL Nucleated RBC % /100WBC Nucleated RBCs # K/uL INR 0.94 APTT 27.7 (18.6-31.3) SEC Lactate 1.9 (0.20-2.00) mmol/L Sodium (136-145) mmol/L Potassium (3.5-5.1) mmol/L Chloride (98-107) mmol/L Carbon Dioxide (21.0-32.0) mmol/L BUN (7.0-18.0) mg/dL Creatinine (0.6-1.0) mg/dL Est Cr Clr Drug Dosing mL/min Estimated GFR (MDRD) ml/min Glucose (74-106) mg/dL Calcium (8.5-10.1) mg/dL Phosphorus (2.6-4.7) mg/dL Magnesium (1.8-2.4) mg/dL Total Bilirubin (0.2-1.0) mg/dL AST (15-37) IU/L ALT (14-63) IU/L Alkaline Phosphatase (46-116) U/L Troponin I (0.000-0.056) ng/mL B-Natriuretic Peptide (<100) PG/ML Total Protein (6.4-8.2) g/dL Albumin (3.4-5.0) g/dL Globulin (2.6-4.0) g/dL Albumin/Globulin Ratio (0.9-1.6) Urine Color YELLOW Urine Appearance CLEAR Urine pH 7.0 (5.0-8.0) Ur Specific [place] 1.010 (1.001-1.035) Urine Protein NEGATIVE (NEGATIVE) mg/dL Urine Glucose (UA) NEGATIVE (NEGATIVE) mg/dL Urine Ketones NEGATIVE (NEGATIVE) mg/dL Urine Occult Blood NEGATIVE (NEGATIVE) Urine Nitrite NEGATIVE (NEGATIVE) Urine Bilirubin NEGATIVE (NEGATIVE) Urine Urobilinogen 0.2 (<2.0) EU/dL Ur Leukocyte Esterase NEGATIVE (NEGATIVE) Urine HCG, Qual (NEGATIVE) SARS-CoV-2 RNA (LEANNA) (NEGATIVE) 06/12/20 06/12/20 Range/Units 12:00 12:30 WBC (4.0-11.0) K/uL RBC (4.30-5.90) M/uL Hgb (12.0-16.0) g/dL Hct (36.0-46.0) % MCV (80.0-98.0) fL MCH (27.0-32.0) pg MCHC (31.0-37.0) g/dL RDW Std Deviation (28.0-62.0) fl RDW Coeff of Susan (11.0-15.0) % Plt Count (150-400) K/uL MPV (7.40-12.00) fL Neut % (Auto) (48.0-80.0) % Lymph % (Auto) (16.0-40.0) % [place] % (Auto) (0.0-15.0) % Eos % (Auto) (0.0-7.0) % Baso % (Auto) (0.0-1.5) % Neut # (Auto) (1.4-5.7) K/uL Lymph # (Auto) (0.6-2.4) K/uL [place] # (Auto) (0.0-0.8) K/uL Eos # (Auto) (0.0-0.7) K/uL Baso # (Auto) (0.0-0.1) K/uL Nucleated RBC % /100WBC Nucleated RBCs # K/uL INR APTT (18.6-31.3) SEC Lactate (0.20-2.00) mmol/L Sodium (136-145) mmol/L Potassium (3.5-5.1) mmol/L Chloride (98-107) mmol/L Carbon Dioxide (21.0-32.0) mmol/L BUN (7.0-18.0) mg/dL Creatinine (0.6-1.0) mg/dL Est Cr Clr Drug Dosing mL/min Estimated GFR (MDRD) ml/min Glucose (74-106) mg/dL Calcium (8.5-10.1) mg/dL Phosphorus (2.6-4.7) mg/dL Magnesium (1.8-2.4) mg/dL Total Bilirubin (0.2-1.0) mg/dL AST (15-37) IU/L ALT (14-63) IU/L Alkaline Phosphatase (46-116) U/L Troponin I (0.000-0.056) ng/mL B-Natriuretic Peptide (<100) PG/ML Total Protein (6.4-8.2) g/dL Albumin (3.4-5.0) g/dL Globulin (2.6-4.0) g/dL Albumin/Globulin Ratio (0.9-1.6) Urine Color Urine Appearance Urine pH (5.0-8.0) Ur Specific [place] (1.001-1.035) Urine Protein (NEGATIVE) mg/dL Urine Glucose (UA) (NEGATIVE) mg/dL Urine Ketones (NEGATIVE) mg/dL Urine Occult Blood (NEGATIVE) Urine Nitrite (NEGATIVE) Urine Bilirubin (NEGATIVE) Urine Urobilinogen (<2.0) EU/dL Ur Leukocyte Esterase (NEGATIVE) Urine HCG, Qual NEGATIVE (NEGATIVE) SARS-CoV-2 RNA (LEANNA) NEGATIVE (NEGATIVE) Meds: Medications Discontinued Medications Generic Name Dose Route Start Last Admin Trade Name Freq PRN Reason Stop Dose Admin Diphenhydramine HCl 50 mg 06/12/20 11:30 06/12/20 12:17 Benadryl IVPUSH 06/12/20 11:31 50 mg ONETIME ONE Administration Lactated Ringer's 1,000 mls @ 999 mls/hr 06/12/20 10:57 06/12/20 11:21 Ringers, Lactated IV 06/12/20 11:57 999 mls/hr .BOLUS ONE Administration Metoclopramide HCl 10 mg 06/12/20 11:30 06/12/20 12:17 Reglan IVPUSH 06/12/20 11:31 10 mg ONETIME ONE Administration Sodium Chloride 10 ml 06/12/20 10:57 06/12/20 11:21 Saline Flush FLUSH 10 ml ASDIRECTED PRN Administration Keep Vein Open Sodium Chloride 2.5 ml 06/12/20 10:57 06/12/20 11:20 Saline Flush FLUSH 2.5 ml ASDIRECTED PRN Administration Keep Vein Open - Re-Assessments/Exams Free Text/Narrative Re-Assessment/Exam: 06/12/20 13:45 Patient is choosing to leave against medical advice. I personally explained to the patient that choosing to do so may result in permanent bodily harm or . I discussed at great length that without further evaluation and monitoring there may be unforeseen circumstances and deterioration causing permanent bodily harm or as a result of their choice. The patient is alert, oriented, and competent at this time. The patient states that they are aware of the serious risks as explained, but they still choose to leave against medical advice. The patient is aware that they did not allow us to complete their evaluation, and there is still the possibility that an emergency condition could exist. This has been thoroughly explained to the patient and the patient has indicated your understanding of such. The patient is assuming all risk and liability for such a condition, or for such a condition subsequently developing. The patient is doi ng so at their own free will, with a full knowledge of the potential consequences of these actions. The patient was encouraged to return at any time should they experience any changes about evaluation, or should they develop any new or worsening symptoms that concerns them. Departure - Departure Time of Disposition: 13:51 Disposition: Against Medical Advice 07 Condition: Serious Clinical Impression: Syncope, Seizure, Hypertension, Left against medical advice - Discharge Information *PRESCRIPTION DRUG MONITORING PROGRAM REVIEWED*: Not Applicable *COPY OF PRESCRIPTION DRUG MONITORING REPORT IN PATIENT BHUPENDRA: Not Applicable Referrals: Darryl Laughlin MD [Primary Care Provider] - Forms: ED Department Discharge, Refusal of Care AMA Sepsis Event Note (ED) - Focused Exam Vital Signs: Vital Signs Temp Pulse Resp BP Pulse Ox 06/12/20 12:02 97.1 F 99 18 156/105 H 100 06/12/20 11:26 97.1 F 91 18 169/101 H 100 06/12/20 10:55 96.6 F L 96 20 173/115 H 100 - My Orders Last 24 Hours: My Active Orders 06/12/20 10:57 Saline Lock Insert [OM.PC] Stat - Assessment/Plan Last 24 Hours: My Active Orders 06/12/20 10:57 Saline Lock Insert [OM.PC] Stat
[2020-06-12] MEDS ORDERED: diphenhydrAMINE 50 MG/ML SDV IVPUSH ONE (11:30)
[2020-06-12] MEDS ORDERED: Metoclopramide 10 MG/2 ML SDV IVPUSH ONE (11:30)
[2020-06-12 11:43] LABS: BLOOD UREA NITROGEN,BUN 9 mg/dL (7.0-18.0); CARBON DIOXIDE,CO2 23.7 mmol/L (21.0-32.0); CHLORIDE,CL 100 mmol/L (98-107); GLUCOSE RANDOM 96 mg/dL (74-106); POTASSIUM,K 3.4 mmol/L (3.5-5.1); SODIUM,NA 137 mmol/L (136-145)
--- NOTE | 2020-06-12 12:02 | CR ---
INDICATION: Syncope. TECHNIQUE: Chest 1 view. COMPARISON: Chest radiograph 01/06/2018. FINDINGS: No focal consolidation, pleural effusion, or pneumothorax. Normal heart size and pulmonary vascularity. The bones are unremarkable. IMPRESSION: No acute cardiopulmonary findings. Dictated by Jeri Pryor MD @ Jun 12 2020 12:00PM Signed by Dr. Jeri Pryor @ Jun 12 2020 12:01PM
[2020-06-12 12:03] VITALS: BP 156/105; PULSE 99
--- NOTE | 2020-06-12 12:08 | CT ---
INDICATION: Syncope COMPARISON: None TECHNIQUE: CT examination of the head was performed as axial sections without intravenous contrast. Images were obtained from the vertex of the skull through the skull base. Please note that all CT scans at this facility use dose modulation, iterative reconstruction, and/or weight-based dosing when appropriate to reduce radiation dose to as low as reasonably achievable. FINDINGS: The brain shows no sign of mass lesion, mass effect, hemorrhage, or edema. There are involutional changes. There is moderate cortical atrophy and there is moderate white matter disease. There is no hydrocephalus. Motion artifact somewhat limits the study especially towards the skull base. The visualized portions of the orbits are normal in appearance. The osseous structures are normal in appearance with no sign of abnormality in the skull base or calvarium. IMPRESSION: Involutional changes. No acute appearing findings. Moderate technical limitations related to motion. Please note that all CT scans at this facility use dose modulation, iterative reconstruction, and/or weight-based dosing when appropriate to reduce radiation dose to as low as reasonably achievable. Dictated by Devante Randall MD @ Jun 12 2020 12:04PM Signed by Dr. Devante Randall @ Jun 12 2020 12:06PM
== END 2020-06-12 13:45 | disposition left against medical advice (07) ==
LOC: MW.ED 10:52
DX: R55 Syncope and collapse (principal); R56.9 Unspecified convulsions; I10 Essential (primary) hypertension; F17.210 Nicotine dependence, cigarettes, uncomplicated; F41.9 Anxiety disorder, unspecified; F32.9 Major depressive disorder, single episode, unspecified; E03.9 Hypothyroidism, unspecified; J44.9 Chronic obstructive pulmonary disease, unspecified; E66.9 Obesity, unspecified; Z68.30 Body mass index [BMI] 30.0-30.9, adult; Z79.899 Other long term (current) drug therapy; Z20.828 Contact with and (suspected) exposure to other viral communicable diseases; Z79.82 Long term (current) use of aspirin; Z88.0 Allergy status to penicillin; Z91.018 Allergy to other foods
CPT/HCPCS: 36415; 70450; 71045; 80053; 81003; 81025; 83605; 83735; 83880; 84100; 84484; 85025; 85610; 85730; 87635; 99284; J1200; J2765; J7120; 93010; 99285; U0002

== ENCOUNTER 2022-11-25 10:47 | Emergency (ER) | payer MEDICARE, BC ==
[2022-11-25 11:39] VITALS: BP 136/95; PULSE 100
== END 2022-11-25 11:38 | disposition home or self-care (01) ==
LOC: MW.ED 10:47
DX: N61.0 Mastitis without abscess (principal); I10 Essential (primary) hypertension; J44.9 Chronic obstructive pulmonary disease, unspecified; E03.9 Hypothyroidism, unspecified; Z88.0 Allergy status to penicillin; Z91.018 Allergy to other foods; Z79.82 Long term (current) use of aspirin; Z79.899 Other long term (current) drug therapy; Z90.12 Acquired absence of left breast and nipple
CPT/HCPCS: 99283

== ENCOUNTER 2024-04-10 12:46 | Inpatient (IN) | payer BC, MEDICARE ==
[2024-04-10] MEDS ORDERED: Sodium Chloride 0.9% 2.5 ML Syringe FLUSH PRN (13:13)
[2024-04-10] MEDS: Aspirin 81 MG Tab.Chew PO ONE (13:25)
[2024-04-10] MEDS: Alum Hydrox/Mag Hydrox/Simeth 15 ML, Lidocaine 2% 5 ML PO ONE (13:25)
[2024-04-10 13:26] LABS: BASOPHILS ABSOLUTE AUTO 0.09 K/uL (0.00-0.20); BASOPHILS PERCENT AUTO 0.8 % (0.0-1.0); EOSINOPHILS ABSOLUTE AUTO 0.04 K/uL (0.00-0.45); EOSINOPHILS PERCENT AUTO 0.3 % (0.0-6.0); HEMATOCRIT 43.6 % (37.0-47.0); HEMOGLOBIN 16.3 g/dL (12.0-16.0); IMMATURE GRAN ABSOLUTE AUTO 0.05 K/uL (0.00-0.05); IMMATURE GRAN PERCENT AUTO 0.4 % (0.0-0.4); LYMPHOCYTES ABSOLUTE AUTO 2.31 K/uL (1.00-4.80); LYMPHOCYTES PERCENT AUTO 19.3 % (24.0-44.0); MEAN CORPUSCULAR HEMOGLOBIN 34.7 pg (28.0-32.0); MEAN CORPUSCULAR HGB CONC 37.4 g/dL (32.0-36.0); MEAN CORPUSCULAR VOLUME 92.8 fL (83.0-99.0); MEAN PLATELET VOLUME 11.4 fL (9.4-12.3); MONOCYTES ABSOLUTE AUTO 0.95 K/uL (0.00-0.80); MONOCYTES PERCENT AUTO 7.9 % (0.0-8.0); NEUTROPHILS ABSOLUTE AUTO 8.55 K/uL (1.80-7.70); NEUTROPHILS PERCENT AUTO 71.3 % (41.0-71.0); PLATELET COUNT,PLT 188 K/uL (150-400); WHITE BLOOD CELL COUNT,WBC 11.99 K/uL (3.9-11.3)
[2024-04-10] MEDS: Sodium Chloride 0.9% 1,000 ML IV ONE (13:26)
[2024-04-10] MEDS: Sodium Chloride 0.9% 10 ML Syringe FLUSH PRN (13:26)
[2024-04-10 13:46] LABS: A/G RATIO 0.9 (0.9-1.6); ALBUMIN 3.6 g/dL (3.4-5.0); BILIRUBIN TOTAL 1.5 mg/dL (0.2-1.0); CALCIUM 8.9 mg/dL (8.5-10.1); CARBON DIOXIDE,CO2 31.8 mmol/L (21.0-32.0); CREATININE 0.9 mg/dL (0.6-1.0); EST CRCL DRUG DOSING (CG) 61.71 mL/min; MAGNESIUM 2.1 mg/dL (1.8-2.4); POTASSIUM,K 2.9 mmol/L (3.5-5.1); PROTEIN TOTAL,TP 7.6 g/dL (6.4-8.2); TSH ULTRASENSITIVE 6.91 uIU/mL (0.36-3.74)
[2024-04-10 14:03] LABS: CORONAVIRUS COVID-19 NAA NEGATIVE (NEGATIVE); INFLUENZA A NAA NEGATIVE (NEGATIVE); INFLUENZA B NAA NEGATIVE (NEGATIVE); RESPIRATORY SYNCYTIAL VIR NAA NEGATIVE (NEGATIVE)
[2024-04-10] MEDS: Iopamidol 755 MG/ML 500 ML Multipack Bottle IVPUSH STA (14:07)
[2024-04-10 14:26] LABS: T4 FREE 0.86 ng/dL (0.76-1.46)
[2024-04-10 14:34] LABS: APPEARANCE,URINE CLEAR; BILIRUBIN,URINE NEGATIVE (NEGATIVE); COLOR,URINE YELLOW; GLUCOSE,URINE NEGATIVE (NEGATIVE); KETONES,URINE NEGATIVE (NEGATIVE); LEUKOCYTE ESTERASE,URINE NEGATIVE (NEGATIVE); NITRITE,URINE NEGATIVE (NEGATIVE); OCCULT BLOOD,URINE NEGATIVE (NEGATIVE); PROTEIN,URINE NEGATIVE (NEGATIVE); UROBILINOGEN,URINE 0.2 EU/dL (<2.0)
[2024-04-10] MEDS: Sodium Chloride 0.9% 250 ML IV ONE (14:36)
[2024-04-10] MEDS: Potassium Chloride 10 MEQ in Premix Bag 2 BAG IV SCH (14:36)
[2024-04-10] MEDS: Ondansetron 4 MG/2 ML SDV IVPUSH ONE (15:03)
[2024-04-10] MEDS: Morphine 4 MG/ML Syringe IVPUSH ONE ×2 (15:03→15:36)
[2024-04-10 15:44] VITALS: PULSE 89
[2024-04-10] MEDS: HYDROmorphone 0.5 MG/0.5 ML Syringe IVPUSH ONE (15:59)
[2024-04-10] MEDS ORDERED: Sodium Chloride 0.9% 1,000 ML IV SCH (16:45)
[2024-04-10] MEDS: HYDROmorphone 1 MG/ML Syringe IVPUSH ONE (16:55)
[2024-04-10] MEDS ORDERED: Naloxone 0.4 MG/ML SDV IVPUSH PRN (17:11)
[2024-04-10] MEDS ORDERED: HYDROmorphone 2 MG/ML Syringe IVPUSH PRN (17:11)
[2024-04-10] MEDS: Nicotine 7 MG/24 Hr Patch TRDERM SCH (17:54)
[2024-04-10] MEDS: Morphine 2 MG/ML SYRINGE IVPUSH PRN (17:55)
[2024-04-10] MEDS: Ondansetron 4 MG/2 ML SDV IVPUSH SCH (17:55)
[2024-04-10] MEDS: Potassium Chloride 10 MEQ in Premix Bag 1 BAG IV SCH (17:56)
[2024-04-10] MEDS: Sodium Chloride 3% 100 ML IV ONE (17:57)
[2024-04-10] MEDS ORDERED: Albuterol 8 GM Inhaler INH PRN (18:42)
[2024-04-10 18:48] LABS: CALCIUM 8.3 mg/dL (8.5-10.1); CARBON DIOXIDE,CO2 30.6 mmol/L (21.0-32.0); CREATININE 0.7 mg/dL (0.6-1.0); EST CRCL DRUG DOSING (CG) 79.34 mL/min; POTASSIUM,K 3.2 mmol/L (3.5-5.1)
[2024-04-10] MEDS: Acetaminophen/oxyCODONE 325-10 MG Tab PO SCH (19:24)
[2024-04-10] MEDS: Lactated Ringers 1,000 ML IV SCH (19:31)
[2024-04-10] MEDS ORDERED: Potassium Phosphates 3 mMole/ML 15 ML SDV IV ONE (19:52)
[2024-04-10] MEDS: Melatonin 3 MG Tab PO SCH (21:00)
[2024-04-10] MEDS: HYDROmorphone 1 MG/ML Syringe IVPUSH PRN (21:00)
[2024-04-10] MEDS: POTASSIUM PHOSPHATES IV ONE ×2 (21:36→21:50)
[2024-04-10] MEDS: DEXTROSE IV ONE ×2 (21:36→21:50)
[2024-04-10] MEDS: WATER IV ONE ×2 (21:36→21:50)
[2024-04-10] MEDS: Nicotine 14 MG/24 Hr Patch TRDERM SCH (21:54)
[2024-04-10 22:31] LABS: CALCIUM 7.8 mg/dL (8.5-10.1); CARBON DIOXIDE,CO2 31.6 mmol/L (21.0-32.0); CREATININE 0.8 mg/dL (0.6-1.0); EST CRCL DRUG DOSING (CG) 69.42 mL/min; POTASSIUM,K 3.3 mmol/L (3.5-5.1)
[2024-04-11 02:22] LABS: CALCIUM 8.1 mg/dL (8.5-10.1); CARBON DIOXIDE,CO2 33.7 mmol/L (21.0-32.0); CREATININE 0.7 mg/dL (0.6-1.0); EST CRCL DRUG DOSING (CG) 79.34 mL/min; POTASSIUM,K 3.6 mmol/L (3.5-5.1)
[2024-04-11 06:15] LABS: BASOPHILS ABSOLUTE AUTO 0.05 K/uL (0.00-0.20); BASOPHILS PERCENT AUTO 0.6 % (0.0-1.0); EOSINOPHILS ABSOLUTE AUTO 0.13 K/uL (0.00-0.45); EOSINOPHILS PERCENT AUTO 1.5 % (0.0-6.0); HEMATOCRIT 40.2 % (37.0-47.0); HEMOGLOBIN 14.6 g/dL (12.0-16.0); IMMATURE GRAN ABSOLUTE AUTO 0.02 K/uL (0.00-0.05); IMMATURE GRAN PERCENT AUTO 0.2 % (0.0-0.4); LYMPHOCYTES ABSOLUTE AUTO 1.25 K/uL (1.00-4.80); LYMPHOCYTES PERCENT AUTO 14.2 % (24.0-44.0); MEAN CORPUSCULAR HEMOGLOBIN 34.7 pg (28.0-32.0); MEAN CORPUSCULAR HGB CONC 36.3 g/dL (32.0-36.0); MEAN CORPUSCULAR VOLUME 95.5 fL (83.0-99.0); MEAN PLATELET VOLUME 11.4 fL (9.4-12.3); MONOCYTES PERCENT AUTO 6.8 % (0.0-8.0); NEUTROPHILS ABSOLUTE AUTO 6.78 K/uL (1.80-7.70); NEUTROPHILS PERCENT AUTO 76.7 % (41.0-71.0); PLATELET COUNT,PLT 141 K/uL (150-400); RED BLOOD CELL COUNT 4.21 M/uL (4.10-5.30); WHITE BLOOD CELL COUNT,WBC 8.83 K/uL (3.9-11.3)
[2024-04-11 06:43] LABS: A/G RATIO 0.9 (0.9-1.6); BILIRUBIN TOTAL 0.9 mg/dL (0.2-1.0); CALCIUM 8.2 mg/dL (8.5-10.1); CARBON DIOXIDE,CO2 33.6 mmol/L (21.0-32.0); CREATININE 0.6 mg/dL (0.6-1.0); EST CRCL DRUG DOSING (CG) 92.56 mL/min; POTASSIUM,K 3.5 mmol/L (3.5-5.1); PROTEIN TOTAL,TP 6.3 g/dL (6.4-8.2)
[2024-04-11] MEDS: Potassium Chloride 20 MEQ Tab.ER PO ONE ×2 (08:07→19:28)
[2024-04-11] MEDS: Dextrose 5% in Water 1,000 ML IV SCH ×2 (08:08→16:15)
[2024-04-11 10:44] LABS: CALCIUM 8.2 mg/dL (8.5-10.1); CARBON DIOXIDE,CO2 32.3 mmol/L (21.0-32.0); CREATININE 0.6 mg/dL (0.6-1.0); EST CRCL DRUG DOSING (CG) 92.56 mL/min; POTASSIUM,K 3.6 mmol/L (3.5-5.1)
[2024-04-11 14:35] LABS: CALCIUM 8.5 mg/dL (8.5-10.1); CARBON DIOXIDE,CO2 36.8 mmol/L (21.0-32.0); CREATININE 0.7 mg/dL (0.6-1.0); EST CRCL DRUG DOSING (CG) 79.34 mL/min; POTASSIUM,K 3.6 mmol/L (3.5-5.1)
[2024-04-11] MEDS: Dextrose 5% in Water 500 ML IV SCH (15:09)
[2024-04-11 18:24] LABS: CALCIUM 8.1 mg/dL (8.5-10.1); CARBON DIOXIDE,CO2 32.3 mmol/L (21.0-32.0); CREATININE 0.6 mg/dL (0.6-1.0); EST CRCL DRUG DOSING (CG) 92.56 mL/min; POTASSIUM,K 3.2 mmol/L (3.5-5.1)
[2024-04-11] MEDS: Lactated Ringers 1,000 ML IV SCH (19:21)
[2024-04-11] MEDS: Docusate Sodium 100 MG Cap PO PRN (21:02)
[2024-04-11 22:27] LABS: CREATININE 0.6 mg/dL (0.6-1.0); EST CRCL DRUG DOSING (CG) 92.56 mL/min; POTASSIUM,K 3.9 mmol/L (3.5-5.1)
[2024-04-12 02:07] LABS: CARBON DIOXIDE,CO2 33.7 mmol/L (21.0-32.0); CREATININE 0.6 mg/dL (0.6-1.0); EST CRCL DRUG DOSING (CG) 92.56 mL/min; POTASSIUM,K 3.8 mmol/L (3.5-5.1)
[2024-04-12 06:05] LABS: BASOPHILS ABSOLUTE AUTO 0.05 K/uL (0.00-0.20); BASOPHILS PERCENT AUTO 0.5 % (0.0-1.0); EOSINOPHILS ABSOLUTE AUTO 0.18 K/uL (0.00-0.45); EOSINOPHILS PERCENT AUTO 1.9 % (0.0-6.0); HEMATOCRIT 37.5 % (37.0-47.0); HEMOGLOBIN 13.3 g/dL (12.0-16.0); IMMATURE GRAN ABSOLUTE AUTO 0.02 K/uL (0.00-0.05); IMMATURE GRAN PERCENT AUTO 0.2 % (0.0-0.4); LYMPHOCYTES ABSOLUTE AUTO 1.34 K/uL (1.00-4.80); LYMPHOCYTES PERCENT AUTO 14.1 % (24.0-44.0); MEAN CORPUSCULAR HEMOGLOBIN 34.7 pg (28.0-32.0); MEAN CORPUSCULAR HGB CONC 35.5 g/dL (32.0-36.0); MEAN CORPUSCULAR VOLUME 97.9 fL (83.0-99.0); MEAN PLATELET VOLUME 11.8 fL (9.4-12.3); MONOCYTES PERCENT AUTO 6.3 % (0.0-8.0); NEUTROPHILS ABSOLUTE AUTO 7.33 K/uL (1.80-7.70); PLATELET COUNT,PLT 145 K/uL (150-400); RED BLOOD CELL COUNT 3.83 M/uL (4.10-5.30); WHITE BLOOD CELL COUNT,WBC 9.52 K/uL (3.9-11.3)
[2024-04-12 06:25] LABS: A/G RATIO 0.8 (0.9-1.6); ALBUMIN 2.7 g/dL (3.4-5.0); BILIRUBIN TOTAL 0.7 mg/dL (0.2-1.0); CARBON DIOXIDE,CO2 36.3 mmol/L (21.0-32.0); CREATININE 0.6 mg/dL (0.6-1.0); EST CRCL DRUG DOSING (CG) 92.56 mL/min; PHOSPHORUS 2.3 mg/dL (2.6-4.7); POTASSIUM,K 3.9 mmol/L (3.5-5.1); PROTEIN TOTAL,TP 6.2 g/dL (6.4-8.2)
[2024-04-12 11:13] VITALS: BP 146/94
[2024-04-12 11:29] LABS: CALCIUM 8.9 mg/dL (8.5-10.1); CARBON DIOXIDE,CO2 34.9 mmol/L (21.0-32.0); CREATININE 0.6 mg/dL (0.6-1.0); EST CRCL DRUG DOSING (CG) 92.56 mL/min; POTASSIUM,K 3.9 mmol/L (3.5-5.1)
[2024-04-12] MEDS: Phosphorus #1 250 MG Tab PO ONE (11:40)
[2024-04-12] MEDS ORDERED: Phosphorus #1 250 MG Tab PO SCH (14:00)
== END 2024-04-12 12:40 | disposition home or self-care (01) | DRG 282 ==
LOC: MW.ED 12:46 → MW.ICU 16:10
PROVIDERS: ADMIT Family Medicine; ATTEND Family Medicine
DX: K85.90 Acute pancreatitis without necrosis or infection, unspecified (principal); E87.1 Hypo-osmolality and hyponatremia; E87.6 Hypokalemia; E03.9 Hypothyroidism, unspecified; I10 Essential (primary) hypertension; J44.9 Chronic obstructive pulmonary disease, unspecified; G89.29 Other chronic pain; M54.9 Dorsalgia, unspecified; F41.9 Anxiety disorder, unspecified; F32.A Depression, unspecified; M81.0 Age-related osteoporosis without current pathological fracture; E66.9 Obesity, unspecified; K21.9 Gastro-esophageal reflux disease without esophagitis; E83.39 Other disorders of phosphorus metabolism; E87.8 Other disorders of electrolyte and fluid balance, not elsewhere classified; F17.210 Nicotine dependence, cigarettes, uncomplicated; Z88.0 Allergy status to penicillin; Z88.8 Allergy status to other drugs, medicaments and biological substances; Z79.82 Long term (current) use of aspirin; Z68.31 Body mass index [BMI] 31.0-31.9, adult; Z91.018 Allergy to other foods; Z79.899 Other long term (current) drug therapy; Z79.890 Hormone replacement therapy; Z98.890 Other specified postprocedural states
CPT/HCPCS: 0241U; 36415; 71046; 71046-26; 74177; 74177-26; 76705; 76705-26; 80048; 80053; 80061; 81003; 82947; 83690; 83735; 84100; 84439; 84443; 84484; 85025; 93005; 93010; 99285; A9270-GY; J1171; J2270; J2405; J3480; J3490; J7030; J7050; J7060; J7120; J7131; Q9967

== ENCOUNTER 2024-06-22 15:36 | Emergency (ER) | payer BC, MEDICARE ==
[2024-06-22] MEDS: Sodium Chloride 0.9% 1,000 ML IV STA (16:25)
[2024-06-22] MEDS: Ondansetron 4 MG/2 ML SDV IVPUSH STA (16:25)
[2024-06-22] MEDS: Morphine 4 MG/ML Syringe IVPUSH STA ×2 (16:26→17:50)
[2024-06-22 16:44] LABS: BASOPHILS ABSOLUTE AUTO 0.06 K/uL (0.00-0.20); BASOPHILS PERCENT AUTO 0.6 % (0.0-1.0); EOSINOPHILS ABSOLUTE AUTO 0.02 K/uL (0.00-0.45); EOSINOPHILS PERCENT AUTO 0.2 % (0.0-6.0); HEMATOCRIT 47.4 % (37.0-47.0); HEMOGLOBIN 17.2 g/dL (12.0-16.0); IMMATURE GRAN ABSOLUTE AUTO 0.03 K/uL (0.00-0.05); IMMATURE GRAN PERCENT AUTO 0.3 % (0.0-0.4); LYMPHOCYTES ABSOLUTE AUTO 1.77 K/uL (1.00-4.80); LYMPHOCYTES PERCENT AUTO 19.1 % (24.0-44.0); MEAN CORPUSCULAR HEMOGLOBIN 33.9 pg (28.0-32.0); MEAN CORPUSCULAR HGB CONC 36.3 g/dL (32.0-36.0); MEAN CORPUSCULAR VOLUME 93.5 fL (83.0-99.0); MEAN PLATELET VOLUME 11.3 fL (9.4-12.3); MONOCYTES ABSOLUTE AUTO 0.89 K/uL (0.00-0.80); MONOCYTES PERCENT AUTO 9.6 % (0.0-8.0); NEUTROPHILS ABSOLUTE AUTO 6.52 K/uL (1.80-7.70); NEUTROPHILS PERCENT AUTO 70.2 % (41.0-71.0); PLATELET COUNT,PLT 165 K/uL (150-400); RED BLOOD CELL COUNT 5.07 M/uL (4.10-5.30); WHITE BLOOD CELL COUNT,WBC 9.29 K/uL (3.9-11.3)
[2024-06-22 17:02] LABS: INR 1.06 (0.86-1.11)
[2024-06-22 17:12] LABS: A/G RATIO 0.7 (0.9-1.6); ALBUMIN 2.8 g/dL (3.4-5.0); BILIRUBIN TOTAL 1.1 mg/dL (0.2-1.0); CALCIUM 8.3 mg/dL (8.5-10.1); CREATININE 0.7 mg/dL (0.6-1.0); PROTEIN TOTAL,TP 6.9 g/dL (6.4-8.2)
[2024-06-22] MEDS: fentaNYL/Normal Saline 250 ML ONE (17:50)
[2024-06-22] MEDS: Potassium Chloride 20 MEQ in Premix Bag 1 BAG IV STA (17:50)
[2024-06-22] MEDS: Sodium Chloride 0.9% 500 ML IV ONE (17:50)
[2024-06-22] MEDS: EPINEPHrine 1:10,000 1 MG/10 ML Syringe IVPUSH STA (17:54)
[2024-06-22] MEDS: Sodium Bicarbonate 8.4% 50 MEQ/50 ML Syringe IVPUSH ONE (17:57)
[2024-06-22] MEDS: Magnesium Sulfate/Water Premix 2 GM in Premix Bag 1 BAG IV STA ×2 (17:57→20:50)
[2024-06-22] MEDS: EPINEPHrine 1:10,000 1 MG/10 ML Syringe IVPUSH ONE ×6 (17:58→18:24)
[2024-06-22] MEDS: Potassium Chloride 10 MEQ in Premix Bag 1 BAG IV ONE ×3 (18:07→18:22)
[2024-06-22] MEDS ORDERED: fentaNYL/Normal Saline 2,500 MCG in Premix Bag 1 BAG IV PRN ×2 (18:40→19:15)
[2024-06-22] MEDS ORDERED: Norepinephrine Bit/D5W Premix 250 ML IV SCH ×2 (18:44)
[2024-06-22] MEDS ORDERED: 50% Dextrose in Water 50 ML Syringe ONE (19:00)
[2024-06-22] MEDS ORDERED: Sodium Bicarbonate 8.4% 50 MEQ/50 ML Syringe ONE (19:00)
[2024-06-22] MEDS ORDERED: EPINEPHrine 1:10,000 1 MG/10 ML Syringe ONE (19:00)
[2024-06-22] MEDS ORDERED: Amiodarone 150 MG/3 ML SDV ONE (19:00)
[2024-06-22] MEDS: fentaNYL/Normal Saline 2,500 MCG in Premix Bag 1 BAG IV PRN (19:25)
[2024-06-22 20:04] VITALS: BP 135/96; PULSE 119
[2024-06-22] MEDS: LORazepam 2 MG/ML SDV IVPUSH ONE (20:35)
[2024-06-22 20:45] LABS: BASE EXCESS ARTERIAL -3.9 (-2.0-3.0); BICARBONATE,ARTERIAL 25 mEq/L (22-26); PCO2 ARTERIAL 58 mmHG (35-45); PO2 ARTERIAL 105 mmHG (80-105)
[2024-06-22] MEDS: Potassium Chloride 10 MEQ in Premix Bag 1 BAG IV SCH (20:48)
[2024-06-22] MEDS: LORazepam 2 MG/ML SDV ONE (20:51)
[2024-06-22] MEDS: LORazepam 2 MG/ML SDV IVPUSH STA (21:05)
[2024-06-23] MEDS: Norepinephrine Bit/D5W Premix 250 ML ONE (12:55)
[2024-06-23] MEDS: Potassium Chloride 20 MEQ Tab.ER PO STA (12:55)
[2024-06-23] MEDS: Magnesium Sulfate/Water Premix 100 ML ONE (12:55)
[2024-06-23] MEDS: Amiodarone 150 MG/3 ML SDV IV STA (13:05)
== END 2024-06-22 21:50 ==
LOC: MW.ED 15:36
DX: I46.9 Cardiac arrest, cause unspecified (principal); E87.6 Hypokalemia; E87.1 Hypo-osmolality and hyponatremia; E83.42 Hypomagnesemia; Z87.19 Personal history of other diseases of the digestive system; I10 Essential (primary) hypertension; J44.9 Chronic obstructive pulmonary disease, unspecified; E03.9 Hypothyroidism, unspecified; E66.9 Obesity, unspecified; Z79.890 Hormone replacement therapy; Z79.82 Long term (current) use of aspirin; Z79.899 Other long term (current) drug therapy; Z88.0 Allergy status to penicillin; Z91.018 Allergy to other foods; Z75.8 Other problems related to medical facilities and other health care
CPT/HCPCS: 31500; 36415; 36600; 51702; 70450; 71045; 71275; 74177; 80053; 82803; 83690; 83735; 84484; 85025; 85610; 92950; 93005; 96361; 96365; 96366; 96367; 96368; 96375; 96376; 99291; J0171; J0282; J2060; J2270; J2405; J3475; J3480; J7030; 93010; 99285; J3490

== ENCOUNTER 2024-09-15 06:12 | Emergency (ER) | payer BC, MEDICARE ==
[2024-09-15 06:39] LABS: BASOPHILS ABSOLUTE AUTO 0.06 K/uL (0.00-0.20); BASOPHILS PERCENT AUTO 0.7 % (0.0-1.0); EOSINOPHILS ABSOLUTE AUTO 0.16 K/uL (0.00-0.45); EOSINOPHILS PERCENT AUTO 1.8 % (0.0-6.0); HEMATOCRIT 38.8 % (37.0-47.0); HEMOGLOBIN 13.3 g/dL (12.0-16.0); IMMATURE GRAN ABSOLUTE AUTO 0.03 K/uL (0.00-0.05); IMMATURE GRAN PERCENT AUTO 0.3 % (0.0-0.4); LYMPHOCYTES ABSOLUTE AUTO 2.32 K/uL (1.00-4.80); LYMPHOCYTES PERCENT AUTO 26.8 % (24.0-44.0); MEAN CORPUSCULAR HEMOGLOBIN 28.8 pg (28.0-32.0); MEAN CORPUSCULAR HGB CONC 34.3 g/dL (32.0-36.0); MEAN PLATELET VOLUME 12.9 fL (9.4-12.3); MONOCYTES ABSOLUTE AUTO 0.78 K/uL (0.00-0.80); NEUTROPHILS ABSOLUTE AUTO 5.32 K/uL (1.80-7.70); NEUTROPHILS PERCENT AUTO 61.4 % (41.0-71.0); PLATELET COUNT,PLT 190 K/uL (150-400); RED BLOOD CELL COUNT 4.62 M/uL (4.10-5.30); WHITE BLOOD CELL COUNT,WBC 8.67 K/uL (3.9-11.3)
[2024-09-15 07:13] LABS: A/G RATIO 0.7 (0.9-1.6); ALBUMIN 3.1 g/dL (3.4-5.0); BILIRUBIN TOTAL 0.4 mg/dL (0.2-1.0); CALCIUM 9.2 mg/dL (8.5-10.1); CARBON DIOXIDE,CO2 25.2 mmol/L (21.0-32.0); CREATININE 0.7 mg/dL (0.6-1.0); EST CRCL DRUG DOSING (CG) 78.41 mL/min; MAGNESIUM 1.9 mg/dL (1.8-2.4); POTASSIUM,K 3.4 mmol/L (3.5-5.1); PROTEIN TOTAL,TP 7.6 g/dL (6.4-8.2)
[2024-09-15 07:23] LABS: APPEARANCE,URINE CLEAR; BILIRUBIN,URINE NEGATIVE (NEGATIVE); COLOR,URINE YELLOW; GLUCOSE,URINE NEGATIVE (NEGATIVE); KETONES,URINE NEGATIVE (NEGATIVE); LEUKOCYTE ESTERASE,URINE TRACE (NEGATIVE); NITRITE,URINE NEGATIVE (NEGATIVE); OCCULT BLOOD,URINE NEGATIVE (NEGATIVE); PROTEIN,URINE NEGATIVE (NEGATIVE); UROBILINOGEN,URINE 0.2 EU/dL (<2.0)
[2024-09-15 07:35] LABS: BACTERIA,URINE FEW (NEGATIVE); EPITHELIAL CELLS,URINE FEW (NONE-FEW); RBC,URINE 0-2 (0-2/HPF); WBC,URINE 0-3 (0-5/HPF)
[2024-09-15] MEDS ORDERED: Gabapentin 300 MG Cap PO ONE (07:36)
[2024-09-15 07:38] VITALS: BP 162/92
[2024-09-15 08:13] LABS: LIPASE 118 U/L (16-77); PRO B-TYPE NATRIUR PEPT,BNPPRO 1159 pg/mL (0-125)
[2024-09-15] MEDS: Acetaminophen 500 MG Tab PO ONE (08:14)
[2024-09-15] MEDS: Dexamethasone 4 MG Tab PO ONE ×2 (08:14→11:17)
[2024-09-15] MEDS: Orphenadrine 60 MG/2 ML Inj IM ONE (08:14)
[2024-09-15] MEDS: Lidocaine 4% Patch TOP ONE (08:14)
[2024-09-15] MEDS ORDERED: Furosemide 40 MG/4 ML VIAL IVPUSH ONE (10:51)
[2024-09-15 11:22] VITALS: PULSE 76
== END 2024-09-15 11:47 | disposition home or self-care (01) ==
LOC: MW.ED 06:12
DX: I49.3 Ventricular premature depolarization (principal); I49.1 Atrial premature depolarization; I10 Essential (primary) hypertension; R74.8 Abnormal levels of other serum enzymes; M54.9 Dorsalgia, unspecified; G89.29 Other chronic pain; E03.9 Hypothyroidism, unspecified; J44.9 Chronic obstructive pulmonary disease, unspecified; Z88.0 Allergy status to penicillin; Z91.018 Allergy to other foods; Z79.890 Hormone replacement therapy; Z79.899 Other long term (current) drug therapy; Z79.01 Long term (current) use of anticoagulants
CPT/HCPCS: 36415; 71045; 80053; 81001; 83690; 83735; 83880; 84484; 85025; 93005; 96372; 99285; A9270; J2360; J8540; 93010; 99284

== ENCOUNTER 2024-09-15 18:44 | Emergency (ER) | payer BC, MEDICARE ==
[2024-09-15 20:10] VITALS: BP 132/88; PULSE 66
== END 2024-09-15 20:32 | disposition home or self-care (01) ==
LOC: MW.ED 18:44
DX: M54.9 Dorsalgia, unspecified (principal); G89.29 Other chronic pain; I10 Essential (primary) hypertension; J44.9 Chronic obstructive pulmonary disease, unspecified; K21.9 Gastro-esophageal reflux disease without esophagitis; E03.9 Hypothyroidism, unspecified; E66.9 Obesity, unspecified; Z79.890 Hormone replacement therapy; Z79.01 Long term (current) use of anticoagulants; Z79.899 Other long term (current) drug therapy; Z88.0 Allergy status to penicillin; Z91.018 Allergy to other foods; Z68.28 Body mass index [BMI] 28.0-28.9, adult
CPT/HCPCS: 72128; 72128-26; 72131; 72131-26; 99283; 99284

== ENCOUNTER 2024-12-25 20:14 | Emergency (ER) | payer BC, MEDICARE ==
[2024-12-25 20:34] LABS: BASOPHILS ABSOLUTE AUTO 0.09 K/uL (0.00-0.20); BASOPHILS PERCENT AUTO 1.3 % (0.0-1.0); EOSINOPHILS ABSOLUTE AUTO 0.24 K/uL (0.00-0.45); EOSINOPHILS PERCENT AUTO 3.5 % (0.0-6.0); HEMATOCRIT 34.7 % (37.0-47.0); HEMOGLOBIN 11.3 g/dL (12.0-16.0); IMMATURE GRAN ABSOLUTE AUTO 0.01 K/uL (0.00-0.05); IMMATURE GRAN PERCENT AUTO 0.1 % (0.0-0.4); LYMPHOCYTES ABSOLUTE AUTO 2.56 K/uL (1.00-4.80); LYMPHOCYTES PERCENT AUTO 37.7 % (24.0-44.0); MEAN CORPUSCULAR HEMOGLOBIN 28.6 pg (28.0-32.0); MEAN CORPUSCULAR HGB CONC 32.6 g/dL (32.0-36.0); MEAN CORPUSCULAR VOLUME 87.8 fL (83.0-99.0); MEAN PLATELET VOLUME 11.1 fL (9.4-12.3); MONOCYTES PERCENT AUTO 10.3 % (0.0-8.0); NEUTROPHILS ABSOLUTE AUTO 3.19 K/uL (1.80-7.70); NEUTROPHILS PERCENT AUTO 47.1 % (41.0-71.0); PLATELET COUNT,PLT 210 K/uL (150-400); RED BLOOD CELL COUNT 3.95 M/uL (4.10-5.30); WHITE BLOOD CELL COUNT,WBC 6.79 K/uL (3.9-11.3)
[2024-12-25 21:08] LABS: A/G RATIO 0.9 (0.9-1.6); ALANINE AMINOTRANSFERASE,ALT 20 IU/L (14-63); ALBUMIN 3.1 g/dL (3.4-5.0); ALKALINE PHOSPHATASE 102 U/L (46-116); ASPARTATE AMNIOTRANSFERASE,AST 23 IU/L (15-37); BILIRUBIN TOTAL 0.2 mg/dL (0.2-1.0); BLOOD UREA NITROGEN,BUN 20 mg/dL (7.0-18.0); CALCIUM 8.6 mg/dL (8.5-10.1); CARBON DIOXIDE,CO2 31.5 mmol/L (21.0-32.0); CHLORIDE,CL 100 mmol/L (98-107); CREATININE 1.1 mg/dL (0.6-1.0); GLUCOSE RANDOM 130 mg/dL (74-106); LIPASE 35 U/L (16-77); POTASSIUM,K 4.2 mmol/L (3.5-5.1); PRO B-TYPE NATRIUR PEPT,BNPPRO 227 pg/mL (0-125); PROTEIN TOTAL,TP 6.7 g/dL (6.4-8.2); SODIUM,NA 135 mmol/L (136-145)
[2024-12-25 21:10] LABS: ESTIMATED GFR 59 mL/min (>60)
[2024-12-25 22:31] LABS: APPEARANCE,URINE CLEAR; BILIRUBIN,URINE NEGATIVE (NEGATIVE); COLOR,URINE YELLOW; GLUCOSE,URINE NEGATIVE (NEGATIVE); KETONES,URINE NEGATIVE (NEGATIVE); LEUKOCYTE ESTERASE,URINE NEGATIVE (NEGATIVE); NITRITE,URINE NEGATIVE (NEGATIVE); OCCULT BLOOD,URINE NEGATIVE (NEGATIVE); PH,URINE 5.5 (5.0-8.0); PROTEIN,URINE NEGATIVE (NEGATIVE); UROBILINOGEN,URINE 0.2 EU/dL (<2.0)
[2024-12-25] MEDS: Sodium Chloride 0.9% 500 ML IV ONE (22:31)
[2024-12-25 22:44] LABS: EPITHELIAL CELLS,URINE FEW (NONE-FEW); RBC,URINE 0-1 (0-2/HPF); WBC,URINE 0-1 (0-5/HPF)
[2024-12-25 22:45] LABS: BACTERIA,URINE NOT SEEN (NEGATIVE)
[2024-12-25 23:33] VITALS: BP 130/89; PULSE 79
== END 2024-12-25 23:34 | disposition home or self-care (01) ==
LOC: MW.ED 20:14
DX: R42 Dizziness and giddiness (principal); N17.9 Acute kidney failure, unspecified; I10 Essential (primary) hypertension; J44.9 Chronic obstructive pulmonary disease, unspecified; E03.9 Hypothyroidism, unspecified; Z88.0 Allergy status to penicillin; Z91.018 Allergy to other foods; Z79.890 Hormone replacement therapy; Z79.899 Other long term (current) drug therapy
CPT/HCPCS: 36415; 70450; 71045; 72125; 80053; 81001; 83690; 83880; 84484; 85025; 93005; 99285; J7030; 99283

== ENCOUNTER 2025-01-05 06:48 | Emergency (ER) | payer BC, MEDICARE ==
[2025-01-05] MEDS ORDERED: Sodium Chloride 0.9% 2.5 ML Syringe FLUSH PRN (06:57)
[2025-01-05] MEDS ORDERED: Sodium Chloride 0.9% 10 ML Syringe FLUSH PRN (06:57)
[2025-01-05 08:04] LABS: LACTIC ACID 5.0 mmol/L (0.4-2.0)
[2025-01-05 08:05] LABS: BASOPHILS ABSOLUTE AUTO 0.08 K/uL (0.00-0.20); BASOPHILS PERCENT AUTO 0.5 % (0.0-1.0); EOSINOPHILS ABSOLUTE AUTO 0.15 K/uL (0.00-0.45); EOSINOPHILS PERCENT AUTO 1.0 % (0.0-6.0); IMMATURE GRAN ABSOLUTE AUTO 0.09 K/uL (0.00-0.05); IMMATURE GRAN PERCENT AUTO 0.6 % (0.0-0.4); LYMPHOCYTES ABSOLUTE AUTO 1.65 K/uL (1.00-4.80); LYMPHOCYTES PERCENT AUTO 11.2 % (24.0-44.0); MEAN PLATELET VOLUME 12.4 fL (9.4-12.3); MONOCYTES ABSOLUTE AUTO 0.65 K/uL (0.00-0.80); MONOCYTES PERCENT AUTO 4.4 % (0.0-8.0); NEUTROPHILS ABSOLUTE AUTO 12.06 K/uL (1.80-7.70); NEUTROPHILS PERCENT AUTO 82.3 % (41.0-71.0); NRBC ABSOLUTE 0.00 K/uL (0.00-0.02); NRBC PERCENT 0.0 /100WBC (0.0-0.2); PLATELET COUNT,PLT 194 K/uL (150-400); RED BLOOD CELL COUNT 3.62 M/uL (4.10-5.30); WHITE BLOOD CELL COUNT,WBC 14.68 K/uL (3.9-11.3)
[2025-01-05 08:08] LABS: A/G RATIO 0.9 (0.9-1.6); ALANINE AMINOTRANSFERASE,ALT 19 IU/L (14-63); ASPARTATE AMNIOTRANSFERASE,AST 21 IU/L (15-37); BILIRUBIN TOTAL 0.3 mg/dL (0.2-1.0); BLOOD UREA NITROGEN,BUN 16 mg/dL (7.0-18.0); CARBON DIOXIDE,CO2 25.9 mmol/L (21.0-32.0); CHLORIDE,CL 100 mmol/L (98-107); CREATININE 1.3 mg/dL (0.6-1.0); EST CRCL DRUG DOSING (CG) 40.45 mL/min; ESTIMATED GFR 49 mL/min (>60); ETHANOL BLOOD MEDICAL <3 mg/dL; GLUCOSE RANDOM 173 mg/dL (74-106); PHOSPHORUS 5.3 mg/dL (2.6-4.7); POTASSIUM,K 4.2 mmol/L (3.5-5.1); PRO B-TYPE NATRIUR PEPT,BNPPRO 724 pg/mL (0-125); PROTEIN TOTAL,TP 6.1 g/dL (6.4-8.2); SODIUM,NA 136 mmol/L (136-145)
[2025-01-05] MEDS: fentaNYL 50 MCG/ML SDV IVPUSH ONE ×2 (08:48→11:06)
[2025-01-05] MEDS: Iopamidol 755 MG/ML 500 ML Multipack Bottle IVPUSH STA (09:30)
[2025-01-05 10:29] LABS: APPEARANCE,URINE CLEAR; GLUCOSE,URINE NEGATIVE (NEGATIVE); OCCULT BLOOD,URINE NEGATIVE (NEGATIVE)
[2025-01-05 10:36] LABS: MEAN PLATELET VOLUME 11.8 fL (9.4-12.3); NRBC ABSOLUTE 0.00 K/uL (0.00-0.02); NRBC PERCENT 0.0 /100WBC (0.0-0.2); PLATELET COUNT,PLT 190 K/uL (150-400); RED BLOOD CELL COUNT 3.30 M/uL (4.10-5.30); WHITE BLOOD CELL COUNT,WBC 10.83 K/uL (3.9-11.3)
[2025-01-05 10:37] LABS: AMPHETAMINES SCREEN, URINE NEGATIVE (CUTOFF=500); BUPRENORPHINE SCREEN,URINE NEGATIVE (CUTOFF=10); METHADONE SCREEN, URINE NEGATIVE (CUTOFF=200); METHAMPHETAMINES SCREEN, URINE NEGATIVE (CUTOFF=500); OXYCODONE SCREEN,URINE NEGATIVE (CUT0FF=100); PCP SCREEN,URINE NEGATIVE (CUTOFF=25); THC SCREEN,URINE 20 NG/ML PRESUMPTIVE POSITIVE (CUTOFF=50)
[2025-01-05] MEDS: cefTRIAXone 1 GM in Water For Injection, Sterile 10 ML IVPUSH ONE (11:07)
[2025-01-05 11:12] VITALS: BP 128/89; PULSE 65
[2025-01-05] MEDS: Ondansetron 4 MG/2 ML SDV IVPUSH ONE (12:11)
== END 2025-01-05 12:30 ==
LOC: MW.ED 06:48
DX: J18.9 Pneumonia, unspecified organism (principal); E86.1 Hypovolemia; I95.9 Hypotension, unspecified; E87.20 Acidosis, unspecified; K66.1 Hemoperitoneum; D72.829 Elevated white blood cell count, unspecified; I10 Essential (primary) hypertension; J44.9 Chronic obstructive pulmonary disease, unspecified; K21.9 Gastro-esophageal reflux disease without esophagitis; E03.9 Hypothyroidism, unspecified; Z87.891 Personal history of nicotine dependence; Z88.0 Allergy status to penicillin; Z91.018 Allergy to other foods; Z88.8 Allergy status to other drugs, medicaments and biological substances; Z79.899 Other long term (current) drug therapy; Z79.01 Long term (current) use of anticoagulants; Z79.890 Hormone replacement therapy
CPT/HCPCS: 36415; 71045; 71275; 74177; 80053; 80305; 80307; 81003; 81025; 83605; 83735; 83880; 84100; 84484; 85025; 85027; 85379; 86850; 86900; 86901; 87040; 93005; 96361; 96365; 96375; 96376; 99285; J0696; J2270; J2405; J3010; J3490; J7030; Q9967; 93010

== ENCOUNTER 2025-01-26 15:07 | Emergency (ER) | payer BC, MEDICARE ==
[2025-01-26 15:33] LABS: BASOPHILS ABSOLUTE AUTO 0.08 K/uL (0.00-0.20); BASOPHILS PERCENT AUTO 0.9 % (0.0-1.0); EOSINOPHILS ABSOLUTE AUTO 0.09 K/uL (0.00-0.45); EOSINOPHILS PERCENT AUTO 1.0 % (0.0-6.0); IMMATURE GRAN ABSOLUTE AUTO 0.05 K/uL (0.00-0.05); IMMATURE GRAN PERCENT AUTO 0.6 % (0.0-0.4); LYMPHOCYTES ABSOLUTE AUTO 1.53 K/uL (1.00-4.80); LYMPHOCYTES PERCENT AUTO 17.2 % (24.0-44.0); MEAN PLATELET VOLUME 10.6 fL (9.4-12.3); MONOCYTES ABSOLUTE AUTO 1.12 K/uL (0.00-0.80); MONOCYTES PERCENT AUTO 12.6 % (0.0-8.0); NEUTROPHILS ABSOLUTE AUTO 6.02 K/uL (1.80-7.70); NEUTROPHILS PERCENT AUTO 67.7 % (41.0-71.0); NRBC ABSOLUTE 0.00 K/uL (0.00-0.02); NRBC PERCENT 0.0 /100WBC (0.0-0.2); PLATELET COUNT,PLT 484 K/uL (150-400); RED BLOOD CELL COUNT 3.16 M/uL (4.10-5.30); WHITE BLOOD CELL COUNT,WBC 8.89 K/uL (3.9-11.3)
[2025-01-26 16:01] LABS: LACTIC ACID 1.6 mmol/L (0.4-2.0)
[2025-01-26 16:03] LABS: A/G RATIO 0.5 (0.9-1.6); ALANINE AMINOTRANSFERASE,ALT 58.0 IU/L (14-63); ASPARTATE AMNIOTRANSFERASE,AST 101.0 IU/L (15-37); BILIRUBIN TOTAL 0.5 mg/dL (0.2-1.0); BLOOD UREA NITROGEN,BUN 13.0 mg/dL (7.0-18.0); CARBON DIOXIDE,CO2 28.6 mmol/L (21.0-32.0); CHLORIDE,CL 95.0 mmol/L (98-107); CREATININE 1.2 mg/dL (0.6-1.0); EST CRCL DRUG DOSING (CG) 45.74 mL/min; ESTIMATED GFR 53.0 mL/min (>60); GLUCOSE RANDOM 124.0 mg/dL (74-106); POTASSIUM,K 4.3 mmol/L (3.5-5.1); PROTEIN TOTAL,TP 8.0 g/dL (6.4-8.2); SODIUM,NA 131.0 mmol/L (136-145)
[2025-01-26] MEDS: Iopamidol 755 MG/ML 500 ML Multipack Bottle IVPUSH STA ×2 (16:06→17:29)
[2025-01-26] MEDS: fentaNYL 50 MCG/ML SDV IVPUSH ONE (16:59)
[2025-01-26] MEDS: fentaNYL 100 MCG/2 ML SDV IVPUSH ONE ×2 (17:47→18:59)
[2025-01-26 18:21] LABS: APPEARANCE,URINE CLEAR; GLUCOSE,URINE NEGATIVE (NEGATIVE); OCCULT BLOOD,URINE NEGATIVE (NEGATIVE)
[2025-01-26 20:04] VITALS: BP 163/83; PULSE 72
== END 2025-01-26 20:00 ==
LOC: MW.ED 15:07
DX: S36.029A Unspecified contusion of spleen, initial encounter (principal); I10 Essential (primary) hypertension; J44.9 Chronic obstructive pulmonary disease, unspecified; K21.9 Gastro-esophageal reflux disease without esophagitis; E03.9 Hypothyroidism, unspecified; Z75.3 Unavailability and inaccessibility of health-care facilities; Z88.0 Allergy status to penicillin; Z91.018 Allergy to other foods; Z79.890 Hormone replacement therapy; Z79.01 Long term (current) use of anticoagulants; Z79.899 Other long term (current) drug therapy; W18.39XA Other fall on same level, initial encounter; Y93.89 Activity, other specified
CPT/HCPCS: 36415; 36430; 71046; 74174; 74177; 80053; 81003; 83605; 83690; 83735; 84484; 85014; 85018; 85025; 86850; 86900; 86901; 86920; 93005; 96361; 96374; 96376; 99285; J3010; J7030; P9016; Q9967; 93010

== ENCOUNTER 2025-01-27 23:01 | Emergency (ER) | payer BC, MEDICARE ==
[2025-01-27 23:28] LABS: BASOPHILS ABSOLUTE AUTO 0.07 K/uL (0.00-0.20); BASOPHILS PERCENT AUTO 0.8 % (0.0-1.0); EOSINOPHILS ABSOLUTE AUTO 0.18 K/uL (0.00-0.45); EOSINOPHILS PERCENT AUTO 2.0 % (0.0-6.0); IMMATURE GRAN ABSOLUTE AUTO 0.03 K/uL (0.00-0.05); IMMATURE GRAN PERCENT AUTO 0.3 % (0.0-0.4); LYMPHOCYTES ABSOLUTE AUTO 1.39 K/uL (1.00-4.80); LYMPHOCYTES PERCENT AUTO 15.8 % (24.0-44.0); MEAN PLATELET VOLUME 10.3 fL (9.4-12.3); MONOCYTES ABSOLUTE AUTO 1.39 K/uL (0.00-0.80); MONOCYTES PERCENT AUTO 15.8 % (0.0-8.0); NEUTROPHILS ABSOLUTE AUTO 5.75 K/uL (1.80-7.70); NEUTROPHILS PERCENT AUTO 65.3 % (41.0-71.0); NRBC ABSOLUTE 0.00 K/uL (0.00-0.02); NRBC PERCENT 0.0 /100WBC (0.0-0.2); PLATELET COUNT,PLT 380 K/uL (150-400); RED BLOOD CELL COUNT 3.69 M/uL (4.10-5.30); WHITE BLOOD CELL COUNT,WBC 8.81 K/uL (3.9-11.3)
[2025-01-27 23:42] LABS: INR 1.13 (0.86-1.11)
[2025-01-27 23:50] LABS: A/G RATIO 0.5 (0.9-1.6); ALANINE AMINOTRANSFERASE,ALT 42.0 IU/L (14-63); ASPARTATE AMNIOTRANSFERASE,AST 47.0 IU/L (15-37); BILIRUBIN TOTAL 0.7 mg/dL (0.2-1.0); BLOOD UREA NITROGEN,BUN 8.0 mg/dL (7.0-18.0); CARBON DIOXIDE,CO2 26.5 mmol/L (21.0-32.0); CHLORIDE,CL 97.0 mmol/L (98-107); CREATININE 0.7 mg/dL (0.6-1.0); EST CRCL DRUG DOSING (CG) 75.12 mL/min; GLUCOSE RANDOM 87.0 mg/dL (74-106); POTASSIUM,K 3.5 mmol/L (3.5-5.1); PROTEIN TOTAL,TP 7.0 g/dL (6.4-8.2); SODIUM,NA 135.0 mmol/L (136-145)
[2025-01-27 23:51] LABS: ESTIMATED GFR 102.0 mL/min (>60)
[2025-01-27] MEDS: Iopamidol 755 Mg/ML 100 ML Bottle IVPUSH ONE (23:56)
[2025-01-28] MEDS: Ondansetron 4 MG/2 ML SDV IVPUSH ONE (01:25)
[2025-01-28 03:11] VITALS: BP 139/99; PULSE 98
== END 2025-01-28 03:31 | disposition home or self-care (01) ==
LOC: MW.ED 23:01
DX: R10.12 Left upper quadrant pain (principal); I10 Essential (primary) hypertension; E03.9 Hypothyroidism, unspecified; E66.9 Obesity, unspecified; J44.9 Chronic obstructive pulmonary disease, unspecified; K21.9 Gastro-esophageal reflux disease without esophagitis; M19.90 Unspecified osteoarthritis, unspecified site; Z79.899 Other long term (current) drug therapy; Z79.890 Hormone replacement therapy; Z88.8 Allergy status to other drugs, medicaments and biological substances; Z88.0 Allergy status to penicillin; Z91.018 Allergy to other foods; Z68.28 Body mass index [BMI] 28.0-28.9, adult
CPT/HCPCS: 36415; 74174; 80053; 85014; 85018; 85025; 85610; 86900; 86901; 96374; 96375; 99284; A9270; J2405; Q9967; 99283; J1171

== ENCOUNTER 2025-04-13 12:44 | Inpatient (IN) | payer BC, MEDICARE ==
[2025-04-13] MEDS ORDERED: Sodium Chloride 0.9% 10 ML Syringe FLUSH PRN (12:53)
[2025-04-13] MEDS ORDERED: Sodium Chloride 0.9% 2.5 ML Syringe FLUSH PRN (12:53)
[2025-04-13] MEDS: Ondansetron 4 MG/2 ML SDV IVPUSH ONE (13:04)
[2025-04-13 13:12] LABS: BASOPHILS ABSOLUTE AUTO 0.03 K/uL (0.00-0.20); BASOPHILS PERCENT AUTO 0.4 % (0.0-1.0); EOSINOPHILS ABSOLUTE AUTO 0.02 K/uL (0.00-0.45); EOSINOPHILS PERCENT AUTO 0.3 % (0.0-6.0); IMMATURE GRAN ABSOLUTE AUTO 0.03 K/uL (0.00-0.05); IMMATURE GRAN PERCENT AUTO 0.4 % (0.0-0.4); LYMPHOCYTES ABSOLUTE AUTO 0.40 K/uL (1.00-4.80); LYMPHOCYTES PERCENT AUTO 5.4 % (24.0-44.0); MEAN PLATELET VOLUME 11.1 fL (9.4-12.3); MONOCYTES ABSOLUTE AUTO 0.11 K/uL (0.00-0.80); MONOCYTES PERCENT AUTO 1.5 % (0.0-8.0); NEUTROPHILS ABSOLUTE AUTO 6.83 K/uL (1.80-7.70); NEUTROPHILS PERCENT AUTO 92.0 % (41.0-71.0); NRBC ABSOLUTE 0.00 K/uL (0.00-0.02); NRBC PERCENT 0.0 /100WBC (0.0-0.2); PLATELET COUNT,PLT 184 K/uL (150-400); RED BLOOD CELL COUNT 5.28 M/uL (4.10-5.30); WHITE BLOOD CELL COUNT,WBC 7.42 K/uL (3.9-11.3)
[2025-04-13 13:19] LABS: D-DIMER QUANTITATIVE 1.36 mg/L FEU (0.00-0.50); INR 2.16 (0.86-1.11)
[2025-04-13 13:41] LABS: A/G RATIO 0.6 (0.9-1.6); ALANINE AMINOTRANSFERASE,ALT 351 IU/L (14-63); BILIRUBIN TOTAL 1.0 mg/dL (0.2-1.0); BLOOD UREA NITROGEN,BUN 8 mg/dL (7.0-18.0); CARBON DIOXIDE,CO2 20.7 mmol/L (21.0-32.0); CHLORIDE,CL 90 mmol/L (98-107); CREATININE 0.9 mg/dL (0.6-1.0); EST CRCL DRUG DOSING (CG) 58.42 mL/min; GLUCOSE RANDOM 86 mg/dL (74-106); POTASSIUM,K 3.3 mmol/L (3.5-5.1); PRO B-TYPE NATRIUR PEPT,BNPPRO 1646 pg/mL (0-125); PROTEIN TOTAL,TP 7.4 g/dL (6.4-8.2); SODIUM,NA 128 mmol/L (136-145)
[2025-04-13] MEDS: Iopamidol 755 MG/ML 500 ML Multipack Bottle IVPUSH ONE (13:44)
[2025-04-13 13:52] LABS: ESTIMATED GFR 76 mL/min (>60); TSH ULTRASENSITIVE < 0.01 uIU/mL (0.36-3.74)
[2025-04-13 14:04] LABS: ASPARTATE AMNIOTRANSFERASE,AST 1634 IU/L (15-37)
[2025-04-13 14:22] LABS: ETHANOL BLOOD MEDICAL <3 mg/dL; T3 FREE 1.68 pg/mL (2.18-3.98); T4 FREE 2.14 ng/dL (0.76-1.46)
[2025-04-13] MEDS: Ketorolac 30 MG/ML SDV IVPUSH ONE (14:44)
[2025-04-13 15:04] LABS: APPEARANCE,URINE CLEAR; GLUCOSE,URINE NEGATIVE (NEGATIVE); OCCULT BLOOD,URINE NEGATIVE (NEGATIVE)
[2025-04-13 15:43] LABS: BLOOD UREA NITROGEN,BUN 8.0 mg/dL (7.0-18.0); CARBON DIOXIDE,CO2 23.0 mmol/L (21.0-32.0); CHLORIDE,CL 92.0 mmol/L (98-107); CREATININE 0.8 mg/dL (0.6-1.0); EST CRCL DRUG DOSING (CG) 65.73 mL/min; GLUCOSE RANDOM 80.0 mg/dL (74-106); POTASSIUM,K 3.7 mmol/L (3.5-5.1); SODIUM,NA 128.0 mmol/L (136-145)
[2025-04-13 15:45] LABS: ESTIMATED GFR 87.0 mL/min (>60)
[2025-04-13 15:51] LABS: LACTIC ACID 1.7 mmol/L (0.4-2.0)
[2025-04-13 16:50] LABS: AMPHETAMINES SCREEN, URINE NEGATIVE (CUTOFF=500); BUPRENORPHINE SCREEN,URINE NEGATIVE (CUTOFF=10); METHADONE SCREEN, URINE NEGATIVE (CUTOFF=200); METHAMPHETAMINES SCREEN, URINE NEGATIVE (CUTOFF=500); OXYCODONE SCREEN,URINE NEGATIVE (CUT0FF=100); PCP SCREEN,URINE NEGATIVE (CUTOFF=25); THC SCREEN,URINE 20 NG/ML PRESUMPTIVE POSITIVE (CUTOFF=50)
[2025-04-13] MEDS: Iopamidol 755 Mg/ML 100 ML Bottle IVPUSH ONE (17:00)
[2025-04-13] MEDS: Furosemide 20 MG/2 ML VIAL IVPUSH ONE (17:15)
[2025-04-13 20:26] VITALS: BP 114/79; PULSE 113
[2025-04-17 16:12] LABS: HAV AB IGM Negative (Negative); HBC IGM Negative (Negative); HEP B SURG AG Negative (Negative); HEP C AB BY CIA Negative (Negative); HEP C AB BY CIA INDEX 0.02 IV
[2025-04-18 05:07] LABS: HSV SUBTYPE SOURCE Serum; HSV1 SUBTYPE BY PCR Not Detected; HSV2 SUBTYPE BY PCR Not Detected
== END 2025-04-13 20:15 | disposition left against medical advice (07) ==
LOC: MW.ED 12:44 → MW.MS 16:47
PROVIDERS: ADMIT Internal Medicine; ATTEND Internal Medicine
DX: B17.9 Acute viral hepatitis, unspecified (principal); J44.9 Chronic obstructive pulmonary disease, unspecified; I10 Essential (primary) hypertension; G89.29 Other chronic pain; M54.9 Dorsalgia, unspecified; H91.90 Unspecified hearing loss, unspecified ear; H54.7 Unspecified visual loss; M81.0 Age-related osteoporosis without current pathological fracture; G43.909 Migraine, unspecified, not intractable, without status migrainosus; E03.9 Hypothyroidism, unspecified; F41.9 Anxiety disorder, unspecified; F32.A Depression, unspecified; K21.9 Gastro-esophageal reflux disease without esophagitis; F17.210 Nicotine dependence, cigarettes, uncomplicated; Z53.29 Procedure and treatment not carried out because of patient's decision for other reasons; F12.90 Cannabis use, unspecified, uncomplicated; Z87.19 Personal history of other diseases of the digestive system; I25.2 Old myocardial infarction; Z88.0 Allergy status to penicillin; Z91.018 Allergy to other foods; Z79.899 Other long term (current) drug therapy; Z90.89 Acquired absence of other organs; Z98.890 Other specified postprocedural states
CPT/HCPCS: 36415; 71045; 71045-26; 71275; 71275-26; 74177; 74177-26; 76705; 76705-26; 80048; 80053; 80074; 80143; 80305; 80307; 81003; 82140; 83605; 83690; 83735; 83880; 84439; 84443; 84481; 84484; 85025; 85379; 85610; 87428-QW; 87529; 93005; 96361; 96374; 96375; 99222; 99284; 99285-25; A9270-GY; J1885; J1938; J2270; J2405; J3430; J7030; Q9967

== ENCOUNTER 2025-06-11 13:17 | Emergency (ER) | payer MEDICARE ==
[2025-06-11 13:39] LABS: BASOPHILS ABSOLUTE AUTO 0.09 K/uL (0.00-0.20); BASOPHILS PERCENT AUTO 0.8 % (0.0-1.0); EOSINOPHILS ABSOLUTE AUTO 0.10 K/uL (0.00-0.45); EOSINOPHILS PERCENT AUTO 0.9 % (0.0-6.0); IMMATURE GRAN ABSOLUTE AUTO 0.04 K/uL (0.00-0.05); IMMATURE GRAN PERCENT AUTO 0.3 % (0.0-0.4); LYMPHOCYTES ABSOLUTE AUTO 1.97 K/uL (1.00-4.80); LYMPHOCYTES PERCENT AUTO 16.8 % (24.0-44.0); MEAN PLATELET VOLUME 11.8 fL (9.4-12.3); MONOCYTES ABSOLUTE AUTO 0.83 K/uL (0.00-0.80); MONOCYTES PERCENT AUTO 7.1 % (0.0-8.0); NEUTROPHILS ABSOLUTE AUTO 8.69 K/uL (1.80-7.70); NEUTROPHILS PERCENT AUTO 74.1 % (41.0-71.0); NRBC ABSOLUTE 0.00 K/uL (0.00-0.02); NRBC PERCENT 0.0 /100WBC (0.0-0.2); PLATELET COUNT,PLT 244 K/uL (150-400); RED BLOOD CELL COUNT 4.95 M/uL (4.10-5.30); WHITE BLOOD CELL COUNT,WBC 11.72 K/uL (3.9-11.3)
[2025-06-11 13:51] LABS: PCO2 VENOUS 47.0 mmHG (41-51); PH,VENOUS 7.45 (7.32-7.43)
[2025-06-11 13:52] LABS: BASE EXCESS VENOUS 7.3 (-2.0-3.0); BICARBONATE,VENOUS 33.0 mEq/L (22-29); PO2 VENOUS 19.0 mmHG (35-45)
[2025-06-11 14:00] LABS: INR 1.03 (0.86-1.11)
[2025-06-11 14:18] LABS: LACTIC ACID 2.2 mmol/L (0.4-2.0)
[2025-06-11 14:22] LABS: A/G RATIO 0.5 (0.9-1.6); ALANINE AMINOTRANSFERASE,ALT 8.0 IU/L (14-63); ASPARTATE AMNIOTRANSFERASE,AST 19.0 IU/L (15-37); BILIRUBIN TOTAL 0.5 mg/dL (0.2-1.0); BLOOD UREA NITROGEN,BUN 6.0 mg/dL (7.0-18.0); CARBON DIOXIDE,CO2 30.9 mmol/L (21.0-32.0); CHLORIDE,CL 99.0 mmol/L (98-107); CREATININE 0.7 mg/dL (0.6-1.0); EST CRCL DRUG DOSING (CG) 78.41 mL/min; ESTIMATED GFR 102.0 mL/min (>60); GLUCOSE RANDOM 84.0 mg/dL (74-106); POTASSIUM,K 3.8 mmol/L (3.5-5.1); PRO B-TYPE NATRIUR PEPT,BNPPRO 1066.0 pg/mL (0-125); PROTEIN TOTAL,TP 6.9 g/dL (6.4-8.2); SODIUM,NA 139.0 mmol/L (136-145)
[2025-06-11 14:26] LABS: ETHANOL BLOOD MEDICAL <3 mg/dL
[2025-06-11] MEDS: Furosemide 40 MG/4 ML VIAL IVPUSH ONE (14:42)
[2025-06-11 14:45] LABS: TSH ULTRASENSITIVE < 0.01 uIU/mL (0.36-3.74)
[2025-06-11] MEDS: Iopamidol 755 MG/ML 500 ML Multipack Bottle IVPUSH STA (15:03)
[2025-06-11 15:30] LABS: APPEARANCE,URINE CLEAR; GLUCOSE,URINE NEGATIVE (NEGATIVE); OCCULT BLOOD,URINE NEGATIVE (NEGATIVE)
[2025-06-11 15:42] LABS: EPITHELIAL CELLS,URINE RARE (NONE-FEW)
[2025-06-11] MEDS: Acetaminophen/oxyCODONE 325-5 MG Tab PO ONE (16:26)
[2025-06-11 16:30] VITALS: BP 167/98; PULSE 99
== END 2025-06-11 16:31 | disposition home or self-care (01) ==
LOC: MW.ED 13:17
DX: K86.9 Disease of pancreas, unspecified (principal); I10 Essential (primary) hypertension; J44.9 Chronic obstructive pulmonary disease, unspecified; K21.9 Gastro-esophageal reflux disease without esophagitis; E03.9 Hypothyroidism, unspecified; Z88.0 Allergy status to penicillin; Z91.018 Allergy to other foods; Z79.890 Hormone replacement therapy; Z79.899 Other long term (current) drug therapy; Z75.3 Unavailability and inaccessibility of health-care facilities
CPT/HCPCS: 36415; 71045; 74177; 80053; 80307; 81001; 82803; 83605; 83690; 83735; 83880; 84443; 84484; 85025; 85610; 87040; 87428; 93005; 93971; 96374; 96375; 99285; A9270; J1938; J2270; Q9967; 93010; 99284

== ENCOUNTER 2025-06-12 23:39 | Emergency (ER) | payer MEDICARE ==
[2025-06-12] MEDS ORDERED: Sodium Chloride 0.9% 2.5 ML Syringe FLUSH PRN (23:48)
[2025-06-12] MEDS ORDERED: Sodium Chloride 0.9% 10 ML Syringe FLUSH PRN (23:48)
[2025-06-12 23:58] LABS: BASOPHILS ABSOLUTE AUTO 0.09 K/uL (0.00-0.20); BASOPHILS PERCENT AUTO 1.2 % (0.0-1.0); EOSINOPHILS ABSOLUTE AUTO 0.25 K/uL (0.00-0.45); EOSINOPHILS PERCENT AUTO 3.2 % (0.0-6.0); IMMATURE GRAN ABSOLUTE AUTO 0.01 K/uL (0.00-0.05); IMMATURE GRAN PERCENT AUTO 0.1 % (0.0-0.4); LYMPHOCYTES ABSOLUTE AUTO 3.05 K/uL (1.00-4.80); LYMPHOCYTES PERCENT AUTO 39.3 % (24.0-44.0); MEAN PLATELET VOLUME 11.8 fL (9.4-12.3); MONOCYTES ABSOLUTE AUTO 0.75 K/uL (0.00-0.80); MONOCYTES PERCENT AUTO 9.7 % (0.0-8.0); NEUTROPHILS ABSOLUTE AUTO 3.62 K/uL (1.80-7.70); NEUTROPHILS PERCENT AUTO 46.5 % (41.0-71.0); NRBC ABSOLUTE 0.00 K/uL (0.00-0.02); NRBC PERCENT 0.0 /100WBC (0.0-0.2); PLATELET COUNT,PLT 260 K/uL (150-400); RED BLOOD CELL COUNT 4.91 M/uL (4.10-5.30); WHITE BLOOD CELL COUNT,WBC 7.77 K/uL (3.9-11.3)
[2025-06-13 00:20] LABS: A/G RATIO 0.5 (0.9-1.6); ALANINE AMINOTRANSFERASE,ALT 8.0 IU/L (14-63); ASPARTATE AMNIOTRANSFERASE,AST 29.0 IU/L (15-37); BILIRUBIN TOTAL 0.3 mg/dL (0.2-1.0); BLOOD UREA NITROGEN,BUN 3.0 mg/dL (7.0-18.0); CARBON DIOXIDE,CO2 29.9 mmol/L (21.0-32.0); CHLORIDE,CL 99.0 mmol/L (98-107); CREATININE 0.6 mg/dL (0.6-1.0); EST CRCL DRUG DOSING (CG) 91.48 mL/min; ETHANOL BLOOD MEDICAL 146.0 mg/dL; GLUCOSE RANDOM 89.0 mg/dL (74-106); POTASSIUM,K 4.0 mmol/L (3.5-5.1); PROTEIN TOTAL,TP 6.8 g/dL (6.4-8.2); SODIUM,NA 137.0 mmol/L (136-145)
[2025-06-13 00:22] LABS: ESTIMATED GFR 106.0 mL/min (>60)
[2025-06-13 00:23] LABS: INR 1.06 (0.86-1.11); PTT,PARTIAL THROMBOPLSTIN TIME 29.3 SEC (23.9-30.7)
[2025-06-13 00:35] LABS: APPEARANCE,URINE CLEAR; GLUCOSE,URINE NEGATIVE (NEGATIVE); OCCULT BLOOD,URINE NEGATIVE (NEGATIVE)
[2025-06-13] MEDS: Ketorolac 30 MG/ML SDV IVPUSH ONE (00:49)
[2025-06-13 03:02] VITALS: BP 140/85; PULSE 90
[2025-06-13] MEDS: Iopamidol 755 MG/ML 500 ML Multipack Bottle IVPUSH STA (05:42)
== END 2025-06-13 03:00 | disposition home or self-care (01) ==
LOC: MW.ED 23:39
DX: R10.9 Unspecified abdominal pain (principal); R07.9 Chest pain, unspecified; I10 Essential (primary) hypertension; E03.9 Hypothyroidism, unspecified; J44.9 Chronic obstructive pulmonary disease, unspecified; K21.9 Gastro-esophageal reflux disease without esophagitis; Z79.899 Other long term (current) drug therapy; Z79.890 Hormone replacement therapy; Z88.0 Allergy status to penicillin; Z91.018 Allergy to other foods; Z88.8 Allergy status to other drugs, medicaments and biological substances
CPT/HCPCS: 36415; 71045; 74177; 80053; 80307; 81003; 84484; 85025; 85610; 85730; 86850; 86900; 86901; 86902; 93005; 96374; 99285; Q9967; 93010; 99284; J1885